=== PATIENT | male | born 1970 ===

== ENCOUNTER 2020-07-10 11:28 | Emergency (ER) | payer OTHER, SELFPAY ==
--- NOTE | ~2020-07-10 | CT_ITS ---
EXAMINATION: CT ABDOMEN AND PELVIS WITH CONTRAST CLINICAL INFORMATION: Nausea and left lower quadrant abdominal pain. COMPARISON: None TECHNIQUE: Multidetector volumetric images were obtained from the superior aspect of the liver through the pubic symphysis following administration 85 mL of Omnipaque 350 intravenous contrast. Sagittal and coronal reformatted images were obtained on the technologist's workstation. Oral contrast: No This CT examination was performed using dose optimization techniques as appropriate, variously including the following: *Automated exposure control *Adjustment of mA and/or kV according to patient size (this includes techniques or standardized protocols for targeted exams where dose is matched to indication/reason for exam; i.e. extremities or head) *Use of iterative reconstruction technique DLP: 652 mGy-cm FINDINGS: LUNG BASES: There is mild atelectatic changes right lower lobe. Heart size is normal. LIVER, GALLBLADDER, AND BILIARY TREE: The liver is normal in size, shape, and attenuation. There is a hypodensity seen on either side of the ligament teres likely focal fatty deposition. No focal hepatic lesion or biliary ductal dilatation is present. The gallbladder is unremarkable with no evidence of radiopaque gallstones, gallbladder wall thickening, or obvious pericholecystic inflammatory changes. PANCREAS: Unremarkable. SPLEEN: Unremarkable. ADRENAL GLANDS: Unremarkable. KIDNEYS AND URETERS: The kidneys are normal in size, shape, and attenuation. No hydronephrosis, hydroureter, or calculi seen. No perinephric stranding. BLADDER: Unremarkable. GASTROINTESTINAL TRACT: There is diffuse sigmoid and and rest the colon diverticulosis with mild mural thickening distal descending colon with pericolic fat stranding consistent with acute diverticulitis. There is a contained diverticuli. No abscess or free air seen. No proximal bowel obstruction. Scattered stool is seen in the rest of the colon. The small bowel loops are normal caliber. Appendix is normal caliber. ABDOMINAL WALL: No significant hernia is appreciated. LYMPH NODES: Normal. VASCULAR: Unremarkable. PELVIC VISCERA: The prostate gland is normal size with central gland calcification. OSSEOUS STRUCTURES: No lytic or sclerotic process seen. CT/CT abdomen pelvis w con IMPRESSION: Diffuse colonic diverticulosis with sigmoid colon diverticulitis. There is no abscess, obstruction or free air.
[2020-07-10 11:37] VITALS: BP 136/81; PULSE 88; RESP 18; TEMP 37.1; O2SAT 97; BMI 27.7
[2020-07-10 13:59] VITALS: RESP 16
[2020-07-10 13:59] LABS: MANUAL DIFF FLAG NO
[2020-07-10] MEDS: Morphine Sulfate 4 MG/ML CARTRIDGE IVPUSH (13:59)
[2020-07-10] MEDS: ondansetron HCL 4 MG/2 ML VIAL IVPUSH (13:59)
[2020-07-10] MEDS: Ketorolac Tromethamine 30 MG/ML VIAL IVPUSH (13:59)
[2020-07-10 14:00] VITALS: BP 131/81; PULSE 64; RESP 18; TEMP 37.1; O2SAT 99
[2020-07-10] MEDS: 0.9 % Sodium Chloride 1,000 ML 999 ML IVCONT (14:00)
[2020-07-10 14:04] LABS: Basophils Percent Auto 0.3 % (0-2); Eosinophils Absolute Auto 0.2 X10*3/uL (0.0-0.4); Eosinophils Percent Auto 1.8 % (0-4); Hematocrit 42.9 % (42-52); Hemoglobin 14.5 g/dl (14.0-18.0); Imm Gran Abs Auto 0.04 X10*3/uL (0.00-0.03); Imm Gran Pct Auto 0.4 % (0.0-0.4); Lymphocytes Absolute Auto 2.4 X10*3/uL (1.2-4.9); Lymphocytes Percent Auto 24.5 % (20-40); Mean Corpuscular HGB Conc 33.8 g/dl (31.0-36.0); Mean Corpuscular Hemoglobin 30.5 pg (27.0-33.0); Mean Corpuscular Volume 90.1 fL (80-98); Mean Platelet Volume 10.7 fL (9.4-12.4); Monocytes Percent Auto 10.6 % (2-11); Neutrophils Absolute Auto 6.1 X10*3/uL (2.0-8.3); Neutrophils Percent Auto 62.4 % (45-73); Platelet Count 214 X10*3/uL (160-400); Red Blood Count 4.76 X10*6/uL (4.60-5.80); White Blood Count 9.7 X10*3/uL (4.8-10.8)
[2020-07-10 14:10] LABS: INTERNATIONAL NORM RATIO 1.2 (0.9-1.1); Prothrombin Time 14.4 SEC (10.8-13.0)
[2020-07-10 14:23] LABS: Alanine Aminotransferase 19 U/L (0-40); Albumin Level 4.1 g/dL (3.5-5.0); Alkaline Phosphatase 46 U/L (39-117); Anion Gap 10 (12-20); Aspartate Amino Transferase 13 U/L (5-37); Bilirubin Total 0.6 mg/dL (0.0-1.0); Blood Urea Nitrogen 11 mg/dL (9-16); Calcium 8.9 mg/dL (8.4-10.2); Carbon Dioxide 28 mmol/L (22-29); Chloride 108 mmol/L (96-108); Creatinine Clr Calc Pharmacy 120.7; Estimated Glomerular Filt Rate > 60; Glucose Random 89 mg/dL (60-115); Lipase 6 U/L (8-78); Magnesium 2.1 mg/dL (1.6-2.6); Potassium 4.2 mmol/L (3.3-5.1); Sodium 142 mmol/L (135-145); Total Protein 6.3 g/dL (6.5-8.0)
--- NOTE | 2020-07-10 14:41 | ED.ABDPAIN ---
HPI - Abdominal Pain General Chief Complaint: Abdominal Pain Stated Complaint: side pain Time Seen by Provider: 07/10/20 13:30 Source: patient Mode of arrival: ambulatory Limitations: no limitations History of Present Illness HPI narrative: 49-year-old male with no significant past medical history presenting to the ED with complaints of left lower quadrant abdominal pain with associated nausea for the past week worse today. Reports he has had this in the past and they told him he had a infection in his intestines although he is unaware of the name of the infection. Denies any fevers, chills, dizziness, headaches, sore throat, cough, chest pain, shortness of breath, dyspnea exertion, orthopnea, palpitations, radiation of the abdominal pain, back pain, dysuria, hematuria, black or bloody stools, diarrhea constipation or any other symptoms complaints or concerns at this time. Denies recent travel or sick contacts or possible bad food exposure. MD elicited complaint: abdominal pain Pertinent past history: other (See above) Onset (ago): week(s) (1 week worse today) Pain Consistency: constant Location: LLQ Severity: severe Pain scale (0-10): 10 Quality: aching Radiation: none Migration to: no migration Exacerbating factors: nothing Relieving factors: nothing Associated symptoms: nausea Related Data Previous Rx's Medication Instructions Recorded acetaminophen [Tylenol Extra 1,000 mg PO QID PRN #14 tab 07/10/20 Strength] amoxicillin-pot clavulanate 1 tab PO BID 10 Days #20 tab 07/10/20 [Augmentin] ibuprofen 800 mg PO Q8H PRN #14 tab 07/10/20 ondansetron HCl [Zofran] 4 mg PO Q8H PRN #14 tab 07/10/20 oxycodone 5 mg PO BID PRN #10 tab 07/10/20 Allergies Allergy/AdvReac Type Severity Reaction Status Date / Time No Known Allergies Allergy Unverified 11/08/19 18:12 Review of Systems Review of Systems Constitutional : No Weight loss, No Fever, No Chills, No Night Sweats, No Fatigue, NoMalaise ENT/Mouth: No ear pain, No sore throat, No Difficulty swallowing Cardiovascular : No Chest Pain, No SOB, No Dyspnea on Exertion, No Orthopnea, NoEdema, No Palpitations Respiratory : No Cough, No Sputum, No Wheezing, No Dyspnea Gastrointestinal : Positive nausea/left lower quadrant abdominal pain, No Vomiting, No Diarrhea, No blood streaked emesis, No coffee-ground emesis, No gross hematemesis, No blood streak stool, No gross hematochezia, No Melena Genitourinary : No irregular bleeding, No Dysuria, No Urinary Frequency, No Hematuria,No Urinary Incontinence, No Urgency, No Flank Pain Musculoskeletal : No joint pain, No Myalgias, No Joint Swelling Skin : No Skin Lesions, No rash Neuro : No Weakness, No Numbness, No Paresthesias, No Loss of Consciousness, NoDizziness, No Headache Psych : No Social Issues, Heme/Lymph: No Bruising, No Bleeding,No Lymphadenopathy Endocrine : No Polyuria, No Polydipsia, No Temperature Intolerance Yes all other systems are reviewed and are negative Physical Exam Vital Signs: Vital Signs: Last Vital Signs Temp 98.8 F 07/10/20 14:00 Pulse 64 07/10/20 14:00 Resp 18 07/10/20 14:00 BP 131/81 07/10/20 14:00 Pulse Ox 99 07/10/20 14:00 Body Mass Index 27.7 vital signs have been reviewed as normal and appeared to be correct. Blood pressure normal. Heart rate normal. Respiration rate normal. Temperature normal. Oxygen saturation normal. Appearance: Alert. Oriented X3. No acute distress. Head: Normal external exam. Normocephalic. Eyes: PERRLA. EOMI. Conjunctiva and sclera normal. Eyelids normal. ENT: Pharynx normal. Uvula midline. Moist mucous membranes. No trismus noted. No drooling noted. No muffled voice noted. Neck: Normal inspection. Neck supple. FROM. No adenopathy. No meningeal signs. CVS: Normal heart rate and rhythm. Heart sound normal. No murmurs noted. Pulses normal throughout. Respiratory: No respiratory distress. Painless inspiration. Breath sounds normal. No wheezes/rales/rhonchi noted. Chest nontender. No accessory muscle usage noted or decreased air movement noted. Abdomen: Soft and moderate tenderness to palpation to left lower quadrant with guarding. Nondistended. No rigidity. Bowel sounds normal in all 4 quadrants. No distention noted. No organomegaly noted. No visible injury noted. No rebound tenderness. Negative Rovsing sign. Negative obturator's sign. Negative psoas sign. Negative Aguayo sign. Back: No CVA tenderness. Full range of motion noted. Skin: Skin warm and dry. Normal skin color. Normal skin turgor. No rashes/lesions/lacerations noted. Extremities: Extremities exhibit normal range of motion. Extremities nontender. Neuro: Oriented X 3. No motor deficit. No sensory deficit. Reflexes normal. Normal steady gait. Course Course Course Narrative: 14:50pm - labs returned all within normal limits. Still awaiting CT scan of abdomen and pelvis with IV contrast and UA. Will continue to monitor and re-evaluate. Reevaluation(s) Reevaluation #1: - CT scan of abdomen and pelvis revealed diffuse colonic diverticulosis with sigmoid colon diverticulitis there is no abscess obstruction or free air. - patient is tolerating p.o. fluids/solids. Therefore will DC home with Augmentin along with symptomatic treatment instructions return if any new or worsening symptoms to follow up with primary care provider. Patient understands agrees with this plan. Time: 15:42 MDM - Abdominal Pain MDM Narrative Medical decision making narrative: 13:40pm -49-year-old male with no significant past medical history presenting to the ED with complaints of left lower quadrant abdominal pain with associated nausea for the past week worse today. Plan: Labs, UA, CT scan of abdomen pelvis with IV contrast. Provide a L of IV fluids, 30 mg of Toradol, 4 mg of Zofran and 4 mg of morphine and re-evaluate. Medical Records Attestation: I reviewed the patient's medical records. Lab Data Attestation: I reviewed the patient's lab results. Result diagrams: 07/10/20 13:56 07/10/20 13:56 Labs: Lab Results 07/10/20 07/10/20 07/10/20 Range/Units 13:56 13:56 13:56 WBC 9.7 (4.8-10.8) X10*3/uL RBC 4.76 (4.60-5.80) X10*6/uL Hgb 14.5 (14.0-18.0) g/dl Hct 42.9 (42-52) % MCV 90.1 (80-98) fL MCH 30.5 (27.0-33.0) pg MCHC 33.8 (31.0-36.0) g/dl RDW 13.0 (11.0-16.0) % Plt Count 214 (160-400) X10*3/uL MPV 10.7 (9.4-12.4) fL Immature Gran % (Auto) 0.4 (0.0-0.4) % Neut % (Auto) 62.4 (45-73) % Lymph % (Auto) 24.5 (20-40) % Glenn % (Auto) 10.6 (2-11) % Eos % (Auto) 1.8 (0-4) % Baso % (Auto) 0.3 (0-2) % Lymph # (Auto) 2.4 (1.2-4.9) X10*3/uL Glenn # (Auto) 1.0 (0.1-1.2) X10*3/uL Eos # (Auto) 0.2 (0.0-0.4) X10*3/uL Baso # (Auto) 0.0 (0.0-0.2) X10*3/uL Abs Immat Gran (auto) 0.04 H (0.00-0.03) X10*3/uL Absolute Neuts (auto) 6.1 (2.0-8.3) X10*3/uL Absolute Nucleated RBC 0.000 (0.0-0.012) X10*3/uL Nucleated RBC % (auto) 0.0 (0.0-0.2) /100WBC PT 14.4 H (10.8-13.0) SEC INR 1.2 H (0.9-1.1) Sodium 142 (135-145) mmol/L Potassium 4.2 (3.3-5.1) mmol/L Chloride 108 (96-108) mmol/L Carbon Dioxide 28 (22-29) mmol/L Anion Gap 10 L (12-20) BUN 11 (9-16) mg/dL Creatinine 0.87 (0.5-1.4) mg/dL Estim Creat Clear Calc 120.7 Estimated GFR > 60 Random Glucose 89 (60-115) mg/dL Calcium 8.9 (8.4-10.2) mg/dL Magnesium 2.1 (1.6-2.6) mg/dL Total Bilirubin 0.6 (0.0-1.0) mg/dL AST 13 (5-37) U/L ALT 19 (0-40) U/L Alkaline Phosphatase 46 (39-117) U/L Total Protein 6.3 L (6.5-8.0) g/dL Albumin 4.1 (3.5-5.0) g/dL Lipase 6 L (8-78) U/L Imaging Data CT scan abdomen pelvis with IV contrast: Attestation: I personally reviewed and interpreted this imaging study as follows: Radiologist's impression: FINDINGS: LUNG BASES: There is mild atelectatic changes right lower lobe. Heart size is normal. LIVER, GALLBLADDER, AND BILIARY TREE: The liver is normal in size, shape, and attenuation. There is a hypodensity seen on either side of the ligament teres likely focal fatty deposition. No focal hepatic lesion or biliary ductal dilatation is present. The gallbladder is unremarkable with no evidence of radiopaque gallstones, gallbladder wall thickening, or obvious pericholecystic inflammatory changes. PANCREAS: Unremarkable. SPLEEN: Unremarkable. ADRENAL GLANDS: Unremarkable. KIDNEYS AND URETERS: The kidneys are normal in size, shape, and attenuation. No hydronephrosis, hydroureter, or calculi seen. No perinephric stranding. BLADDER: Unremarkable. GASTROINTESTINAL TRACT: There is diffuse sigmoid and and rest the colon diverticulosis with mild mural thickening distal descending colon with pericolic fat stranding consistent with acute diverticulitis. There is a contained diverticuli. No abscess or free air seen. No proximal bowel obstruction. Scattered stool is seen in the rest of the colon. The small bowel loops are normal caliber. Appendix is normal caliber. ABDOMINAL WALL: No significant hernia is appreciated. LYMPH NODES: Normal. VASCULAR: Unremarkable. PELVIC VISCERA: The prostate gland is normal size with central gland calcification. OSSEOUS STRUCTURES: No lytic or sclerotic process seen. CT/CT abdomen pelvis w con IMPRESSION: Diffuse colonic diverticulosis with sigmoid colon diverticulitis. There is no abscess, obstruction or free air. Critical Care Time Critical Care Time Critical Care Time: Yes Total Critical Care Time: 60 Attestation: I personally attest to this time spent taking care of the patient Discharge Plan Discharge Clinical Impression: Diverticulitis Patient Disposition: Home, Self-Care Instructions: Diverticulitis (ED), Diverticulitis Diet (ED) Prescriptions: New ibuprofen 800 mg tablet 800 mg PO Q8H PRN (Reason: pain) Qty: 14 RF: 0 ondansetron HCl [Zofran] 4 mg tablet 4 mg PO Q8H PRN (Reason: nausea and vomiting) Qty: 14 RF: 0 acetaminophen [Tylenol Extra Strength] 500 mg tablet 1,000 mg PO QID PRN (Reason: fever or pain) Qty: 14 RF: 0 amoxicillin-pot clavulanate [Augmentin] 875-125 mg tablet 1 tab PO BID 10 Days Qty: 20 RF: 0 oxycodone 5 mg tablet 5 mg PO BID PRN (Reason: pain) Qty: 10 RF: 0 Referrals: Prabha Limon MD [Physician] - 2 days Physician,Unknown [Primary Care Provider] - 2 days Stand Alone Forms: Work/School Release Print Language: Irish [facility] Past Medical History Attestation statement: The following information was validated with the patient. Social History Social History Advance Directives: Yes Advance Directives Information Provided: Yes Advance Directives on File: No
[2020-07-10] MEDS: iohexoL 350 MG/ML 100 ML INFUS..BTL IV (14:47)
[2020-07-10] MEDS: Amoxicillin/Potassium Clav 875 MG TABLET PO (16:15)
[2020-07-10 17:25] LABS: Influenza A PCR NEGATIVE (Negative); Influenza B PCR NEGATIVE (Negative); Resp Syncy Virus RNA Qual PCR NEGATIVE (Negative); SARS COV2 PCR INHOUSE NEGATIVE (Negative)
== END 2020-07-10 16:22 | disposition home or self-care (01) ==
PROVIDERS: Physician Assistant Medical; Emergency Provider Emergency Medicine Emergency Medical Services
DX: K57.32 Diverticulitis of large intestine without perforation or abscess without bleeding (principal); R10.32 Left lower quadrant pain; Z20.822 Contact with and (suspected) exposure to COVID-19
CPT/HCPCS: 0241U; 36415; 74177; 80053; 83690; 83735; 85025; 85610; 96361; 96374; 96375; 99284; 99291; J1885; J2270; J2405; Q9967

== ENCOUNTER → 2020-09-16 10:52 | Outpatient (BNVA) | payer OTHER, SELFPAY | PROVIDERS: Visit Provider Internal Medicine Cardiovascular Disease | DX: I51.9 Heart disease, unspecified (principal) | CPT/HCPCS: 93005 ==

== ENCOUNTER → 2020-10-24 10:26 | Outpatient (REF) | payer OTHER, SELFPAY ==
--- NOTE | 2020-10-24 10:29 | CA_ITS ---
Transthoracic Echocardiogram Patient (Last, First, Middle): Maxi Gutierrez, Gender: Male Date of : 1970 Age: 50 Procedure Date: 10/24/2020 Procedure Type: Transthoracic Echocardiogram Location: OP Height: 185.42 cm Weight: 85.73 kg BSA: 2.10 m2 Heart Rate: bpm BP: 106 / 64 mmHg Account Manager B2B: CAROL Franks MD: Teja Myles MD Instrument Installer: Teja Myles MD Symptoms: I51.9 - Heart disease, unspecified Study Quality: Good ECG Rhythm: Sinus Conclusions: - 1. Mildly reduced LV systolic function with LVEF of 45-50% 2. Normal cardiac valvular Doppler 3. Normal RV systolic pressure 4. No pericardial effusion Findings Left Ventricle Normal left ventricular cavity size. There is normal left ventricular wall thickness. The left ventricular systolic function is mildly decreased. The visually estimated ejection fraction is between 45-50%. Spectral Doppler is indicative of a normal filling pattern. Right Ventricle Normal right ventricular cavity size and systolic function. Atria Both atria are normal in size. There is no evidence of interatrial shunt. Aortic Valve Normal aortic valve structure and function. There is no aortic valve stenosis. There is no aortic valve regurgitation. Mitral Valve Normal mitral valve structure and function. There is trace mitral valve regurgitation. There is no mitral valve stenosis. Pulmonic Valve The pulmonic valve was not well visualized. Tricuspid Valve Likely normal tricuspid valve structure and function. There is trace tricuspid valve regurgitation. The right ventricular systolic pressure is normal. The right ventricular systolic pressure is 26 mmHg. Normal right atrial pressure. There is no evidence of pulmonary hypertension. Great Vessels All visible segments of the aorta are normal in size. The pulmonary artery was not well visualized. Venous The inferior vena cava is normal in size and collapses greater than 50% with inspiration. Pericardium/Pleural There is no evidence of pericardial effusion. Prior Study Comparison No significant change compared to prior study dated: 11/02/2018. Measurements 2D Linear Measurements RVIDd: 3.46 RVIDd Index: 1.65 IVSd: 0.94 0.6-0.9/0.6-1.0 cm LVIDd: 5.31 3.9-5.3/4.2-5.9 cm LVIDd Index: 2.53 2.4-3.2/2.2-3.1 cm/m2 LVIDs: 4.13 2.0-3.6 cm LVPWd: 1.32 0.7-1.1 cm Ao Root: 3.10 2.1-3.5 cm LA Diam: 3.80 2.7-3.8/3.0-4.0 cm LAIDs Index: 1.81 1.5-2.3 cm/m2 LV Mass: 296.16 67-162/88-224 g LV Mass Index: 141.03 43-95/49-115 g/m2 LVOT Diam: 2.40 3.0+(-)1.3 cm 2D Systolic Function EF 4C: 38.00 >55% EF 2C: 48.60 >55% EF BiP: 45.60 >55% Mitral Valve MV Pk E: 0.65 MV PK A: 0.52 MV Decel Time: 211.00 E/A: 1.30 E'Lateral: 11.60 E'Medial: 7.94 E/E' Med: 8.20 E/E' Lat: 5.60 Aortic Valve AoV Pk Jeison: 1.91 AoV Mn Jeison: 1.11 AoV VTI: 0.28 AoV Pk Grad: 15.00 Aov Mn Grad: 6.00 MOLLY Cont.VTI: 2.72 LVOT LVOT Pk Jeison: 0.84 LVOT Mn Jeison: 0.59 LVOT VTI: 0.17 LVOT Pk Grad: 3.00 LVOT Mn Grad: 2.00 LVOT Diam: 2.40 LVOT Area: 4.52 Diastolic Function MV Pk E: 0.65 MV Pk A: 0.52 E/A: 1.30 E'Medial: 7.94 E/E' Med: 8.20 E' Laterial: 11.60 E/E' Lat: 5.60 Right Ventricle TAPSE (mm): 17.00 TVS' Jeison: 9.70 Tricuspid Valve TR Pk Jeison: 2.42 TR Pk Grad: 23.00 RA Press: 3.00 RVSP: 26.00 Great Vessels Aorta Ao Root-2D: 3.10 2.0-3.7 cm Ao Asc: 2.90 2.1-3.4 cm Ao Arch: 2.60 Updated in Other Vendor System with Status of Final Teja Myles MD electronically signed on 10/26/2020 11:50:18 AM with status of Final
== END ==
LOC: HO.CARD 10:26
PROVIDERS: PCP Internal Medicine; Visit Provider Internal Medicine Cardiovascular Disease
DX: I51.9 Heart disease, unspecified (principal)
CPT/HCPCS: 93306

== ENCOUNTER 2022-04-04 09:39 | Emergency (ER) | payer OTHER, SELFPAY ==
--- NOTE | ~2022-04-04 | CT_ITS ---
EXAMINATION: CT ABDOMEN AND PELVIS WITHOUT CONTRAST CLINICAL INFORMATION: Flank pain and hematuria COMPARISON: CT abdomen pelvis 07/10/2020 TECHNIQUE: Multidetector volumetric imaging was performed from the superior aspect of the liver through the pubic symphysis. Sagittal and coronal reformatted images were obtained on the technologist's workstation. This CT examination was performed using dose optimization techniques as appropriate, variously including the following: *Automated exposure control *Adjustment of mA and/or kV according to patient size (this includes techniques or standardized protocols for targeted exams where dose is matched to indication/reason for exam; i.e. extremities or head) *Use of iterative reconstruction technique DLP: 689 mGy-cm FINDINGS: LUNG BASES: Scattered calcified pulmonary granulomas. ABDOMINAL AND PELVIC WALL: Tiny fat-containing umbilical hernia. Tiny fat-containing right inguinal hernia. LIVER AND BILIARY TREE: Unremarkable. GALLBLADDER: Unremarkable. PANCREAS: Unremarkable. SPLEEN: Unremarkable. ADRENAL GLANDS: Unremarkable. KIDNEYS AND URETERS: Bosniak 1 benign-appearing left renal cyst, no follow-up imaging recommended. No hydronephrosis or nephrolithiasis. GASTROINTESTINAL TRACT: Colonic diverticulosis without evidence of diverticulitis. Appendicoliths within an otherwise normal appendix. VASCULAR: Unremarkable. LYMPH NODES/PERITONEUM: No lymphadenopathy. FREE FLUID: None. BLADDER: Unremarkable. PELVIC VISCERA: Unremarkable. OSSEOUS STRUCTURES: Unremarkable. CT/CT abdomen pelvis wo IV con IMPRESSION: No findings to explain symptoms of flank pain. No hydronephrosis or nephrolithiasis.
[2022-04-04 09:43] VITALS: BP 180/103; PULSE 86; RESP 18; TEMP 36.1; O2SAT 99; BMI 27.0
[2022-04-04 09:54] LABS: MANUAL DIFF FLAG NO
[2022-04-04 09:56] LABS: Basophils Percent Auto 0.3 % (0-2); Eosinophils Absolute Auto 0.2 X10*3/uL (0.0-0.4); Eosinophils Percent Auto 2.2 % (0-4); Hematocrit 44.7 % (42.0-52.0); Hemoglobin 15.1 g/dl (14.0-18.0); Imm Gran Abs Auto 0.06 X10*3/uL (0.00-0.03); Imm Gran Pct Auto 0.9 % (0.0-0.4); Lymphocytes Absolute Auto 2.3 X10*3/uL (1.2-4.9); Lymphocytes Percent Auto 33.4 % (20-40); Mean Corpuscular HGB Conc 33.8 g/dl (31.0-36.0); Mean Corpuscular Hemoglobin 29.8 pg (27.0-33.0); Mean Corpuscular Volume 88.3 fL (80.0-98.0); Mean Platelet Volume 10.3 fL (9.4-12.4); Monocytes Absolute Auto 0.6 X10*3/uL (0.1-1.2); Monocytes Percent Auto 8.3 % (2-11); Neutrophils Absolute Auto 3.8 x10*3/uL (2.0-8.3); Neutrophils Percent Auto 54.9 % (45-73); Platelet Count 242 X10*3/uL (160-400); Red Blood Count 5.06 X10*6/uL (4.60-5.80); Red Cell Distribution Width 12.9 % (11.0-16.0); White Blood Count 6.9 X10*3/uL (4.8-10.8)
[2022-04-04 10:09] LABS: Anion Gap 12 (12-20); Blood Urea Nitrogen 11 mg/dL (9-16); Carbon Dioxide 25 mmol/L (22-29); Chloride 105 mmol/L (96-108); Creatinine Clr Calc Pharmacy 117.5; Estimated Glomerular Filt Rate > 60; Glucose Random 150 mg/dL (60-115); Potassium 4.2 mmol/L (3.3-5.1); Sodium 138 mmol/L (135-145)
--- NOTE | 2022-04-04 11:32 | ED.ABDPAIN ---
HPI - Abdominal Pain General Chief Complaint: Back Pain/Injury Stated Complaint: Blood in urine Time Seen by Provider: 04/04/22 11:30 Source: patient Mode of arrival: ambulatory Limitations: no limitations History of Present Illness HPI narrative: 51yoM with a PMHx of diverticulitis was presenting to the ED with complaints of 2 days of right flank/right abdominal pain with associated hematuria. Reports he had some hematuria yesterday. Normal urine output today. Although he has had some associated nausea. Reports he has never had this pain in the past. Does not feel like his regular diverticulitis pain. Denies any fevers, vomiting, chest pain or shortness of breath, diarrhea constipation or any other symptoms complaints or concerns at this time. MD elicited complaint: abdominal pain and flank pain Pertinent past history: diverticulitis Onset (ago): day(s) (2) Pain Consistency: constant Location: RLQ and R flank Severity: moderate Quality: aching Radiation: suprapubic Exacerbating factors: nothing Relieving factors: nothing Associated symptoms: nausea Related Data Previous Rx's Medication Instructions Recorded acetaminophen 500 mg tablet 1,000 mg PO QID PRN fever or pain 07/10/20 (Tylenol Extra Strength) #14 tabs ibuprofen 800 mg tablet 800 mg PO Q8H PRN pain #14 tabs 07/10/20 ondansetron HCl 4 mg tablet 4 mg PO Q8H PRN nausea and 07/10/20 (Zofran) vomiting #14 tabs cyclobenzaprine 10 mg tablet 10 mg PO Q8H Muscle strain #14 tabs 04/04/22 naproxen 500 mg tablet 500 mg PO BID PRN pain #14 tabs 04/04/22 Allergies Allergy/AdvReac Type Severity Reaction Status Date / Time No Known Allergies Allergy Verified 08/12/20 08:56 Review of Systems Review of Systems Constitutional : No Fever, No Chills, No Night Sweats, No Fatigue, No Malaise Cardiovascular : No Chest Pain, No SOB Respiratory : No Cough, No Sputum, No Wheezing, No Dyspnea Gastrointestinal : + Nausea, No Vomiting, No Diarrhea, + abdominal Pain, No Hematochezia, No Melena Genitourinary : No irregular bleeding, No Dysuria, No Urinary Frequency, + Hematuria,No Urinary Incontinence, No Urgency, No Flank Pain Musculoskeletal : No joint pain, No Myalgias, No Joint Swelling Skin : No Skin Lesions, No rash Neuro : No Weakness, No Numbness, No Paresthesias, No Loss of Consciousness, No Dizziness, No Headache Heme/Lymph: No Lymphadenopathy Endocrine : No Temperature Intolerance Yes all other systems are reviewed and are negative [facility] Past Medical History Attestation statement: The following information was validated with the patient. Source: old records reviewed and nursing notes reviewed Family History Family History Mother Vaginal cancer Father Heart attack, Onset Age: 22 Social History Social History Housing: Apartment Alcohol intake: current Alcohol intake frequency: holidays/special occasions only Patient Tobacco Use Status: Current everyday Tobacco user Cigarettes Per Day: 8 e-Cigarette/Vaping Use: Never Used Second Hand Smoke Exposure: Yes Advance Directives: No Advance Directives Information Provided: Yes service: No Current occupational status: employed Current occupation: make plastic bottles Physical Exam ED Vital Signs: Vital Signs - 24 hr 04/04/22 09:43 04/04/22 12:51 Temperature 97 F Pulse Rate 86 62 Respiratory Rate 18 16 Blood Pressure 180/103 H 152/92 H Pulse Oximetry 99 98 Oxygen Delivery Method Room Air Room Air BMI result Body Mass Index 27.0 Vital signs have been reviewed blood pressure elevated at 180/103. Pulse 86. Respiration 18. Temperature 97 degrees. Oxygen 99% on room air Appearance: Alert. Oriented X3. No acute distress. Head: Normal external exam. Normocephalic. Eyes: PERRLA. EOMI. Conjunctiva and sclera normal. Eyelids normal. ENT: Pharynx normal. Uvula midline. Moist mucous membranes. No trismus noted. No drooling noted. No muffled voice noted. Neck: Normal inspection. Neck supple. FROM. No adenopathy. No meningeal signs. CVS: Normal heart rate and rhythm. Heart sound normal. No murmurs noted. Pulses normal throughout. Respiratory: No respiratory distress. Painless inspiration. Breath sounds normal. No wheezes/rales/rhonchi noted. Chest nontender. No accessory muscle usage noted or decreased air movement noted. Abdomen: Soft and mild tenderness palpation to the right flank. Nondistended. No guarding. No rigidity. Bowel sounds normal in all 4 quadrants. No distention noted. No organomegaly noted. No visible injury noted. No rebound tenderness. Negative Rovsing sign. Negative obturator's sign. Negative psoas sign. Negative Aguayo sign. Back: No CVA tenderness. Full range of motion noted. Skin: Skin warm and dry. Normal skin color. Normal skin turgor. No rashes/lesions/lacerations noted. Extremities: Extremities exhibit normal range of motion. Extremities nontender. Neuro: Oriented X 3. No motor deficit. No sensory deficit. Reflexes normal. Normal steady gait. CN's II-XII intact bilaterally? Course Course Course Narrative: 11:30am - 51yoM with a PMHx of diverticulitis was presenting to the ED with complaints of 2 days of right flank/right abdominal pain with associated hematuria. Reports he had some hematuria yesterday. Normal urine output today. Although he has had some associated nausea. Reports he has never had this pain in the past. Does not feel like his regular diverticulitis pain. This is a 51yoM with right flank pain most concerning for Kidney stones. Differential diagnoses: uti vs appendicitis. Abdominal exam without peritoneal signs. No evidence of acute abdomen at this time. Well appearing. Low suspicion for acute hepatobiliary disease (includng acute cholecystitis), acute infectious processes (pneumonia, hepatitis, pyelonephritis), vascular catastrophe, bowel obstruction or viscus perforation. Presentation not consistent with other acute, emergent causes of abdominal pain at this time. Plan: Patient already had labs while he was in the waiting room patient's random glucose is 150. Otherwise all other labs are within normal limits. I did add LFTs lipase and magnesium that is pending at this time. UA was not given although was ordered. And a CT scan abdomen pelvis without IV contrast ordered at this time. Patient sent back to the waiting room to be evaluated in ED I will keep this patient. Reevaluation(s) Reevaluation #1: CT scan revealed right inguinal hernia otherwise no other acute processes. Not consistent with kidney stones or diverticulitis. Therefore at this time will DC home with symptomatic treatment and referral to a general surgeon for his hernia. It is not incarcerated. No additional labs or imaging indicated at this time. His urine is currently pending. I will call him if he has UTI although he does not have any dysuria. Patient understands return if any new or worsening symptoms. Time: 12:43 Medical Decision Making Lab Data MDM Lab Attestation statement: I reviewed the patient's lab results. 04/04/22 09:51 04/04/22 09:51 Labs: Lab Results 04/04/22 04/04/22 04/04/22 Range/Units 09:51 09:51 12:26 WBC 6.9 (4.8-10.8) X10*3/uL RBC 5.06 (4.60-5.80) X10*6/uL Hgb 15.1 (14.0-18.0) g/dl Hct 44.7 (42.0-52.0) % MCV 88.3 (80.0-98.0) fL MCH 29.8 (27.0-33.0) pg MCHC 33.8 (31.0-36.0) g/dl RDW 12.9 (11.0-16.0) % Plt Count 242 (160-400) X10*3/uL MPV 10.3 (9.4-12.4) fL Immature Gran % (Auto) 0.9 H (0.0-0.4) % Neut % (Auto) 54.9 (45-73) % Lymph % (Auto) 33.4 (20-40) % [place] % (Auto) 8.3 (2-11) % Eos % (Auto) 2.2 (0-4) % Baso % (Auto) 0.3 (0-2) % Lymph # (Auto) 2.3 (1.2-4.9) X10*3/uL [place] # (Auto) 0.6 (0.1-1.2) X10*3/uL Eos # (Auto) 0.2 (0.0-0.4) X10*3/uL Baso # (Auto) 0.0 (0.0-0.2) X10*3/uL Abs Immat Gran (auto) 0.06 H (0.00-0.03) X10*3/uL Absolute Neuts (auto) 3.8 (2.0-8.3) x10*3/uL Absolute Nucleated RBC 0.000 (0.0-0.012) X10*3/uL Nucleated RBC % (auto) 0.0 (0.0-0.2) /100WBC Sodium 138 (135-145) mmol/L Potassium 4.2 (3.3-5.1) mmol/L Chloride 105 (96-108) mmol/L Carbon Dioxide 25 (22-29) mmol/L Anion Gap 12 (12-20) BUN 11 (9-16) mg/dL Creatinine 0.85 (0.5-1.4) mg/dL Estim Creat Clear Calc 117.5 Estimated GFR > 60 Random Glucose 150 H (60-115) mg/dL Calcium 9.0 (8.4-10.2) mg/dL Magnesium 1.6 (1.6-2.6) mg/dL Total Bilirubin 0.4 (0.0-1.0) mg/dL Direct Bilirubin < 0.2 (0.0-0.5) mg/dL AST 16 (5-37) U/L ALT 17 (0-40) U/L Alkaline Phosphatase 42 (39-117) U/L Total Protein 6.4 L (6.5-8.0) g/dL Albumin 4.1 (3.5-5.0) g/dL Lipase 16 (8-78) U/L Urine Color Yellow Urine Appearance Clear Urine pH 7.0 (5.0-9.0) Ur Specific Taylor 1.015 (1.005-1.025) Urine Protein Negative (Neg-Trace) mg/dL Urine Glucose (UA) Negative (Negative) mg/dL Urine Ketones Negative (Negative) mg/dL Urine Blood Negative (Negative) Urine Nitrite Negative (Negative) Ur Leukocyte Esterase Negative (Negative) Independent Interpretation I performed an independent interpretation of an: CT Scan (I reviewed the CT scan results and explained to the patient that he does have a right inguinal hernia he does not have any kidney stones or diverticulitis at this time) Radiology Impression Discussion of test interpretation with radiology: I have reviewed the radiologist's reading. Radiologist Impression: FINDINGS: LUNG BASES: Scattered calcified pulmonary granulomas.? ABDOMINAL AND PELVIC WALL:? Tiny fat-containing umbilical hernia. Tiny fat-containing right inguinal hernia.? LIVER AND BILIARY TREE: Unremarkable.? GALLBLADDER: Unremarkable.? PANCREAS: Unremarkable.? SPLEEN: Unremarkable.? ADRENAL GLANDS: Unremarkable.? KIDNEYS AND URETERS: Bosniak 1 benign-appearing left renal cyst, no follow-up imaging recommended. No hydronephrosis or nephrolithiasis. GASTROINTESTINAL TRACT: Colonic diverticulosis without evidence of diverticulitis.? Appendicoliths within an otherwise normal appendix. VASCULAR: Unremarkable. LYMPH NODES/PERITONEUM: No lymphadenopathy. FREE FLUID: None. BLADDER: Unremarkable.? PELVIC VISCERA: Unremarkable. OSSEOUS STRUCTURES: Unremarkable.? CT/CT abdomen pelvis wo IV con IMPRESSION: ? No findings to explain symptoms of flank pain. No hydronephrosis or nephrolithiasis. Prescription Management I considered prescription management with: Pain Medication (Will DC home with naproxen and Flexeril) Medications Administered Discontinued Medications Generic Name Dose Route Start Last Admin Trade Name Freq PRN Reason Stop Dose Admin Ketorolac Tromethamine 60 mg 04/04/22 11:52 04/04/22 12:27 Ketorolac Tromethamine 60 Mg/2 Ml Vial IM 04/04/22 11:53 60 mg ONCE ONE Administration Ondansetron HCl 4 mg 04/04/22 11:52 04/04/22 12:27 Ondansetron Odt 4 Mg Tab.Rapdis TRANSLINGU 04/04/22 11:53 4 mg ONCE ONE Administration Oxycodone HCl 5 mg 04/04/22 11:52 04/04/22 12:26 Oxycodone Hcl Immed Release 5 Mg Tablet PO 04/04/22 11:53 5 mg ONCE ONE Administration Discharge Plan Discharge Clinical Impression: Pain on movement of skeletal muscle, Inguinal hernia, right Patient Disposition: Home, Self-Care Instructions: Inguinal Hernia (ED), Musculoskeletal Pain (ED) Prescriptions: New naproxen 500 mg tablet 500 mg PO BID PRN (Reason: pain) Qty: 14 0RF cyclobenzaprine 10 mg tablet 10 mg PO Q8H Qty: 14 0RF No Action ibuprofen 800 mg tablet 800 mg PO Q8H PRN (Reason: pain) Qty: 14 0RF ondansetron HCl [Zofran] 4 mg tablet 4 mg PO Q8H PRN (Reason: nausea and vomiting) Qty: 14 0RF acetaminophen [Tylenol Extra Strength] 500 mg tablet 1,000 mg PO QID PRN (Reason: fever or pain) Qty: 14 0RF Referrals: [facility] [place] General Surgeons [Provider Group] (Call to make a follow-up appointment for your right inguinal hernia an your umbilical hernia) Po,Lorenver O, MD [Primary Care Provider] - 2 days
[2022-04-04 11:41] LABS: Alanine Aminotransferase 17 U/L (0-40); Albumin Level 4.1 g/dL (3.5-5.0); Alkaline Phosphatase 42 U/L (39-117); Aspartate Amino Transferase 16 U/L (5-37); Bilirubin Direct < 0.2 mg/dL (0.0-0.5); Bilirubin Total 0.4 mg/dL (0.0-1.0); Lipase 16 U/L (8-78); Magnesium 1.6 mg/dL (1.6-2.6); Total Protein 6.4 g/dL (6.5-8.0)
[2022-04-04] MEDS: oxyCODONE HCl Immed Release 5 MG TABLET PO (12:26)
[2022-04-04] MEDS: Ondansetron ODT 4 MG TAB.RAPDIS TRANSLINGU (12:27)
[2022-04-04] MEDS: Ketorolac Tromethamine 60 MG/2 ML VIAL IM (12:27)
[2022-04-04 12:49] LABS: Appearance Urine Clear; Color Urine Yellow; Glucose Urine UA Negative (Negative); Leukocyte Esterase Urine Negative (Negative); Nitrite Urine Negative (Negative); Specific Gravity - Urine 1.015 (1.005-1.025); Urine Blood Negative (Negative); Urine Ketones Negative (Negative); Urine Protein Negative (Neg-Trace)
[2022-04-04 12:51] VITALS: BP 152/92; PULSE 62; RESP 16; O2SAT 98
--- NOTE | 2022-04-04 13:23 | PC.NURSE ---
pt medicated for 6/10 right lower back pain, denies any pain after medication.
[2022-04-04 16:25] LABS: CT PCR NOT DETECTED (Not Detect.); NG PCR NOT DETECTED (Not Detect.)
== END 2022-04-04 13:24 | disposition home or self-care (01) ==
PROVIDERS: Physician Assistant Medical; Emergency Provider Emergency Medicine Emergency Medical Services; PCP Internal Medicine
DX: K40.90 Unilateral inguinal hernia, without obstruction or gangrene, not specified as recurrent (principal); R31.9 Hematuria, unspecified; M79.10 Myalgia, unspecified site; Z79.899 Other long term (current) drug therapy
CPT/HCPCS: 0353U; 36415; 74176; 80048; 80076; 81003; 83690; 83735; 85025; 96372; 99284; J1885

== ENCOUNTER 2022-04-22 14:02 | Outpatient (REF) | payer OTHER, SELFPAY ==
[2022-04-22 14:49] LABS: MANUAL DIFF FLAG NO
[2022-04-22 15:37] LABS: Basophils Percent Auto 0.4 % (0-2); Eosinophils Absolute Auto 0.2 X10*3/uL (0.0-0.4); Eosinophils Percent Auto 2.2 % (0-4); Hematocrit 43.5 % (42.0-52.0); Hemoglobin 15.1 g/dl (14.0-18.0); Imm Gran Abs Auto 0.02 X10*3/uL (0.00-0.03); Imm Gran Pct Auto 0.3 % (0.0-0.4); Lymphocytes Absolute Auto 2.7 X10*3/uL (1.2-4.9); Mean Corpuscular HGB Conc 34.7 g/dl (31.0-36.0); Mean Corpuscular Hemoglobin 30.1 pg (27.0-33.0); Mean Corpuscular Volume 86.7 fL (80.0-98.0); Mean Platelet Volume 11.1 fL (9.4-12.4); Monocytes Absolute Auto 0.7 X10*3/uL (0.1-1.2); Monocytes Percent Auto 8.8 % (2-11); Neutrophils Absolute Auto 4.1 x10*3/uL (2.0-8.3); Neutrophils Percent Auto 53.3 % (45-73); Platelet Count 261 X10*3/uL (160-400); Red Blood Count 5.02 X10*6/uL (4.60-5.80); Red Cell Distribution Width 12.7 % (11.0-16.0); White Blood Count 7.7 X10*3/uL (4.8-10.8)
[2022-04-22 15:39] LABS: Appearance Urine Clear; Color Urine Yellow; Glucose Urine UA Negative (Negative); Leukocyte Esterase Urine Negative (Negative); Nitrite Urine Negative (Negative); Urine Blood Negative (Negative); Urine Ketones Negative (Negative); Urine Protein Negative (Neg-Trace)
[2022-04-22 15:44] LABS: Estimated Average Glucose 111 mg/dL; Hemoglobin A1C 138.6717 umol/L; Hemoglobin A1c % 5.5 %
[2022-04-22 15:53] LABS: Amphetamine Screen Urine Not Detected (Not Detect); Barbiturates, Urine Not Detected (Not Detect); Benzodiazepines Screen Urine Not Detected (Not Detect); Cannabinoid Screen Urine POSITIVE (Not Detect); Cocaine Screen Urine Not Detected (Not Detect); Fentanyl, urine Not Detected (Not Detect); Opiate Screen Urine Not Detected (Not Detect); Phencyclidine Screen Urine Not Detected (Not Detect)
[2022-04-22 16:06] LABS: Alanine Aminotransferase 15 U/L (0-40); Albumin Level 4.4 g/dL (3.5-5.0); Alkaline Phosphatase 42 U/L (39-117); Anion Gap 11 (12-20); Aspartate Amino Transferase 18 U/L (5-37); Bilirubin Total 0.3 mg/dL (0.0-1.0); Blood Urea Nitrogen 13 mg/dL (9-16); Calcium 9.1 mg/dL (8.4-10.2); Carbon Dioxide 26 mmol/L (22-29); Chloride 108 mmol/L (96-108); Estimated Glomerular Filt Rate > 60; Glucose Random 97 mg/dL (60-115); Potassium 3.9 mmol/L (3.3-5.1); Sodium 141 mmol/L (135-145); Total Protein 6.9 g/dL (6.5-8.0)
[2022-04-27 19:59] LABS: Cotinine, U 1510 ng/mL; Nicotine, U 1075 ng/mL
== END 2022-04-22 14:03 | disposition home or self-care (01) ==
LOC: HO.LAB 14:02
PROVIDERS: PCP Internal Medicine; Referring Provider Internal Medicine; Visit Provider Surgery
DX: I51.9 Heart disease, unspecified (principal); K40.90 Unilateral inguinal hernia, without obstruction or gangrene, not specified as recurrent; K42.9 Umbilical hernia without obstruction or gangrene; M25.551 Pain in right hip; M54.50 Low back pain, unspecified; R31.9 Hematuria, unspecified; F17.200 Nicotine dependence, unspecified, uncomplicated; Z82.49 Family history of ischemic heart disease and other diseases of the circulatory system; R10.9 Unspecified abdominal pain
CPT/HCPCS: 80053; 80307; 80323; 81003; 83036; 85025

== ENCOUNTER 2022-05-13 10:27 | Outpatient (REF) | payer OTHER, SELFPAY ==
--- NOTE | ~2022-05-13 | XR_ITS ---
EXAMINATION: XR HIP, RIGHT CLINICAL INFORMATION: Urinary incontinence COMPARISON: None available. TECHNIQUE: No FINDINGS: Right hip: No acute fracture or dislocation. Joint space is maintained. Pelvis: Left hip joint space is maintained without fracture or dislocation. SI joints are intact. Intact symphysis pubis. No acute pelvic fractures seen. Small phleboliths in the pelvis. No suspicious soft tissue calcification. XR/XR hip RT w PEL1V IMPRESSION: No evidence of acute osseous abnormality.
--- NOTE | ~2022-05-13 | XR_ITS ---
EXAMINATION: XR LUMBOSACRAL SPINE CLINICAL INFORMATION: Urinary incontinence COMPARISON: None available. TECHNIQUE: Three views of the lumbosacral spine. FINDINGS: Vertebral alignment is normal. No evidence of acute vertebral fracture or compression deformity. Disc spaces are relatively maintained. There is endplate spurring at multiple levels in the visualized spine. Facet degeneration in the lower lumbar spine. SI joints are intact. No abnormal soft tissue calcification.. XR/XR lumbar spine 2-3V IMPRESSION: Mild lumbar spondylosis.
== END 2022-05-13 10:28 | disposition home or self-care (01) ==
LOC: HO.US 10:27
PROVIDERS: PCP Internal Medicine; Visit Provider Internal Medicine
DX: R32 Unspecified urinary incontinence (principal); M47.816 Spondylosis without myelopathy or radiculopathy, lumbar region
CPT/HCPCS: 72100; 73502

== ENCOUNTER 2022-05-20 15:53 | Outpatient (REF) | payer OTHER, SELFPAY ==
--- NOTE | ~2022-05-20 | US_ITS ---
EXAMINATION: US RETROPERITONEAL COMPLETE (RENAL) CLINICAL INFORMATION: Unspecified urinary incontinence. COMPARISON: CT abdomen and pelvis without contrast 04/04/2022. TECHNIQUE: Real-time imaging of the kidneys and bladder. FINDINGS: RIGHT KIDNEY: 12.1 x 7.7 x 5.7 cm (SAG x AP x TRV). The kidney is normal in size, contour, and echogenicity. Renal cortical thickness is normal. No calculi or focal parenchymal lesions. No hydronephrosis. Mild pelvic fullness. LEFT KIDNEY: 12.1 x 7.1 x 6.4 cm (SAG x AP x TRV). The kidney is normal in size, contour, and echogenicity. Renal cortical thickness is normal. No renal calculi. Mild hydroureteronephrosis. There is a 1.6 cm simple cyst in the lateral lower pole for which no imaging follow-up is recommended. BLADDER: Indeterminate layering echogenic debris. Bilateral ureteral jets are demonstrated. Prevoid bladder volume is 627 mL. Postvoid bladder volume is 78.4 mL. The prostate volume is 17.6 mL. US/US retroperitoneal comp IMPRESSION: 1. Mild left-sided hydroureteronephrosis of uncertain etiology. If an obstructive uropathy is clinically suspected, recommend correlation with CT abdomen/pelvis. 2. Nonspecific layering echogenic debris in the urinary bladder. Correlate with urinalysis for the presence of cystitis. 3. Increased post void bladder volume, nonspecific could be associated with patient's apprehension to urinate, outlet obstruction or less likely neurogenic disorder.
== END 2022-05-20 15:54 | disposition home or self-care (01) ==
LOC: HO.US 15:53
PROVIDERS: PCP Internal Medicine; Visit Provider Internal Medicine
DX: R32 Unspecified urinary incontinence (principal); R35.1 Nocturia
CPT/HCPCS: 76770

== ENCOUNTER 2022-05-20 16:23 | Outpatient (REF) | payer OTHER, SELFPAY ==
[2022-05-20 17:14] LABS: Urine Cytology See Pathology rpt
== END 2022-05-20 16:24 | disposition home or self-care (01) ==
LOC: HO.LNP 16:23
PROVIDERS: Visit Provider Nurse Practitioner Family
DX: R31.9 Hematuria, unspecified (principal)
CPT/HCPCS: 88112

== ENCOUNTER → 2022-06-22 08:22 | Outpatient (BNVA) | payer OTHER, SELFPAY | PROVIDERS: PCP Internal Medicine; Referring Provider Internal Medicine; Visit Provider Surgery | DX: Z13.89 Encounter for screening for other disorder (principal) ==

== ENCOUNTER 2022-06-30 08:55 | Outpatient (REF) | payer OTHER, SELFPAY ==
[2022-06-30 10:27] LABS: Amphetamine Screen Urine Not Detected (Not Detect); Barbiturates, Urine Not Detected (Not Detect); Benzodiazepines Screen Urine Not Detected (Not Detect); Cannabinoid Screen Urine POSITIVE (Not Detect); Cocaine Screen Urine Not Detected (Not Detect); Fentanyl, urine Not Detected (Not Detect); Opiate Screen Urine Not Detected (Not Detect); Phencyclidine Screen Urine Not Detected (Not Detect)
[2022-07-10 22:03] LABS: Cotinine, U 1167 ng/mL; Nicotine, U 2055 ng/mL
== END 2022-06-30 08:56 | disposition home or self-care (01) ==
LOC: HO.LAB 08:55
PROVIDERS: Nurse Practitioner Family; PCP Internal Medicine; Visit Provider Surgery
DX: Z12.5 Encounter for screening for malignant neoplasm of prostate (principal); R32 Unspecified urinary incontinence; K40.90 Unilateral inguinal hernia, without obstruction or gangrene, not specified as recurrent; K42.9 Umbilical hernia without obstruction or gangrene; R10.9 Unspecified abdominal pain; R35.1 Nocturia; Z72.0 Tobacco use
CPT/HCPCS: 36415; 51798; 80307; 80323; 84153

== ENCOUNTER → 2022-07-06 08:30 | Outpatient (BNVA) | payer OTHER, SELFPAY | PROVIDERS: PCP Internal Medicine; Visit Provider Surgery ==

== ENCOUNTER → 2022-07-27 08:35 | Outpatient (BNVA) | payer OTHER, SELFPAY | PROVIDERS: PCP Internal Medicine; Referring Provider Internal Medicine; Visit Provider Surgery ==

== ENCOUNTER 2022-08-06 09:18 | Outpatient (REF) | payer OTHER, SELFPAY ==
[2022-08-12 17:29] LABS: Cotinine, U 7 ng/mL; Nicotine, U <2 ng/mL
== END 2022-08-06 09:19 | disposition home or self-care (01) ==
LOC: HO.LAB 09:18
PROVIDERS: PCP Internal Medicine; Visit Provider Surgery
DX: K40.90 Unilateral inguinal hernia, without obstruction or gangrene, not specified as recurrent (principal); R10.31 Right lower quadrant pain; Z72.0 Tobacco use; F19.11 Other psychoactive substance abuse, in remission; M54.10 Radiculopathy, site unspecified; Z79.899 Other long term (current) drug therapy
CPT/HCPCS: 80323

== ENCOUNTER → 2022-08-16 09:51 | Outpatient (BNVA) | payer OTHER, SELFPAY | PROVIDERS: PCP Internal Medicine; Visit Provider Surgery | DX: R10.31 Right lower quadrant pain (principal); Z72.0 Tobacco use; K40.90 Unilateral inguinal hernia, without obstruction or gangrene, not specified as recurrent ==

== ENCOUNTER 2022-09-02 05:59 | Day surgery (SDC) | payer OTHER, SELFPAY ==
[2022-08-30 13:52] VITALS: BMI 28.8
--- NOTE | 2022-09-01 13:25 | MHC.SHP ---
Pre-Procedural Eval Section A Date of Service: 09/01/22 The patient is an INPATIENT: No The History & Physical has been completed within 30 days and I have reviewed it.: Yes Section B Chief Complaint: Unilateral inguinal hernia, without obstruction or Allergies: Allergies Allergy/AdvReac Type Severity Reaction Status Date / Time No Known Allergies Allergy Verified 08/16/22 09:58 Plan I have reviewed the history and physical and performed a pertinent physical examination on my patient. No changes have occurred unless specified. Time Spent With Patient Time: Total time managing care of this patient today ____ minutes.
[2022-09-02] MEDS: Lactated Ringers 1,000 ML 100 ML IVCONT (06:32)
[2022-09-02 06:39] VITALS: BP 168/92; PULSE 77; RESP 18; TEMP 36.9; O2SAT 96
--- NOTE | 2022-09-02 07:16 | HO.ANESPROP2 ---
HPI - Anesthesia Eval Consult details Narrative: [facility] Active Problems Active Problems: All Active Problems (Updated 08/16/22 @ 09:57 by Keith Grove MD) Marijuana abuse, continuous (Acute) Colon cancer screening (Acute) Right groin pain (Acute) Impaired glucose tolerance (Acute) Hydronephrosis (Acute) Nocturia (Acute) Urinary incontinence (Acute) Flank pain (Acute) Diverticular disease (Acute) Tobacco abuse (Acute) Umbilical hernia (Acute) Right inguinal hernia (Acute) Right hip pain (Acute) Hematuria (Acute) Right low back pain (Acute) Family history of early CAD (Acute) LV dysfunction (Acute) Past Medical History Medical History Diverticulitis Smoking Family History Family History Mother Vaginal cancer Father Heart attack, Onset Age: 22 Family history of problems with anesthesia: No Surgical History Surgical History No pertinent past surgical history History of Problems with Anesthesia: No Social History Social History Housing: Apartment Alcohol intake: current Alcohol intake frequency: holidays/special occasions only Patient Tobacco Use Status: Former Tobacco user Tobacco use type: Cigarette Cigarettes Per Day: 8 e-Cigarette/Vaping Use: Never Used Second Hand Smoke Exposure: Yes Substance Use Frequency: Occasionally Are you DNR?: No Advance Directives: No Advance Directives Information Provided: Yes Nutrition Risks: No Nutritional Risk service: No Current occupational status: employed Current occupation: make plastic bottles Cognitive needs: No Hearing needs: No Vision needs: Yes Meds Allergies Allergy/AdvReac Type Severity Reaction Status Date / Time No Known Allergies Allergy Verified 08/16/22 09:58 Active Medications: Current Medications Albuterol Sulfate (Albuterol Sulfate (0.083%) 2.5 Mg/3 Ml Vial.Neb) 2.5 mg INHALE ONCE PRN PRN Reason: Shortness of Breath/Wheezing Lactated Ringer's (Lr) 1,000 mls @ 100 mls/hr IVCONT .Q10H SINDHU Last Admin: 09/02/22 06:32 Dose: 100 mls/hr Exam Exam Date and Time: September 02, 2022 0716 Height,Weight and Vital Signs: Height 6 ft 1 in Weight 98.883 kg Last Vital Signs Temp 98.5 F 09/02/22 06:39 Pulse 77 09/02/22 06:39 Resp 18 09/02/22 06:39 BP 168/92 H 09/02/22 06:39 Pulse Ox 96 09/02/22 06:39 O2 Del Method Room Air 09/02/22 06:39 Airway Mallampati Class: II TM Dist: >3cm Neck ROM: Limited Heart: rrr Lungs: cta Assessment and Plan Assessment Anesthesia Assessment: Anesthesia Plan Discussed Final Anesthetic Review Family History of Problems with Anesthesia: No History of Problems with Anesthesia: No NPO: Yes ASA Class: III Final Preanesthetic Review: No Changes in Pt Med Stat, Meds/Allgs Chart Reviewed, Consent Obtained/Reviewed and Anes Risks/Benef Reviewed Patient Risk: Intermediate Procedure Risk: Intermediate Anesthetic Plan Anesthetic Plan: GA and Agree w/ Assess. and Plan Disposition: Standard PACU
--- NOTE | 2022-09-02 07:24 | P.OP_ITS ---
Operative Note Operative Note Date of Service: 09/02/22 Narrative: Preop diagnosis: [Reducible right inguinal hernia] Postop diagnosis: [Reducible direct inguinal hernia] Procedure: [Laparoscopic repair with 4 x 6 in ProGrip mesh] Surgeon: Keith Grove MD Assist: [none] Anesthesia: [GET; local: Ropivicaine 0.5%: Lidocaine, 1% with epi in 50/50 mix, 20cc total used] Estimated blood loss: [3cc] Specimen: [none] Intraoperative findings: [Direct right inguinal hernia, viable properitoneal fat] Indications: [The patient is a 51-year-old gentleman who presented to the emergency department with right flank pain and hematuria following binge drinking. In his workup, no hematuria etiology was determined, but an incidental right inguinal hernia was noted. The patient had ongoing flank and lower extremity pain not related to the hernia. The patient then started to described local inguinal complaints and felt that hernia repair would benefit him. Nicotine cessation was mandated since this was not an emergent case and the patient quit using nicotine. We discussed the pros and cons of open versus laparoscopic repair with mesh and he wanted to proceed with a laparoscopic hernia repair the inherent risks of bleeding, infection, hernia recurrence, ongoing flank pain, hematuria and other low right lower extremity complaints since they were not related to the hernia, risk of mesh complications that could require an operation or chronic pain management was also discussed. The option of continued observation since the hernia spontaneously reduced was encouraged but declined by the patient. Activity restrictions including that the patient can return to work on light duty after 1 week was disclosed in the patient was advised that he is not disabled since he can perform light duty. Patient seemed understand all of his options in these were reviewed with an web applications administrator and the patient's questions seemed to be answered. He wanted to proceed with surgery.] Procedure: [Procedure: The patient was identified in the preoperative holding area by myself and the operative site marked by me confirming a right inguinal hernia. The patient voided their bladder union contract representative, received antibiotics per protocol and sequential compression stockings were in place. The operative field hair had been clipped in preop holding. The patient was again identified in the operating suite and placed supine on the table. See anesthesia notes for full details regarding anesthesia care and management. The patient was then widely prepped and draped in the usual manner using chlorhexidine. An appropriate time-out was performed. The patient's abdomen was accessed through a supraumbilical transverse incision using preemptive local. Veress needle was placed without incident, an appropriate drop test performed and used to obtain a pneumoperitoneum of 15 mmHg using carbon dioxide. Opening pressure was 3 mmHg. The abdomen was then accessed with a 5 mm/30 degree laparoscopic for a 5 mm optical trocar without incident. I then inspected for evidence of injury from either the Veress needle or trocar and found none. The patient was positioned in gentle Trendelenburg position and additional 5 mm trocars placed using preemptive local under direct laparoscopic vision in the patient's right and left midclavicular lines. The 5 mm supraumbilical trocar was upsized to a 12. Laparoscopy confirmed direct right inguinal hernia hernia and ipsilateral peritoneal & transversalis fascia incision was made using a grasper and Endo scissors. Hemostasis was obtained with electrocautery. Dissection was then carried medially to Best's ligament. Next, laparoscopic graspers and scissors were used to developed Retzius space, Bogros space and dissection carried laterally taking care to avoid nerve injury. The direct hernia sac was carefully dissected using electrocautery for hemostasis. Once the sac was reduced, dissection avoiding the triangle of pain and triangle of Doom was carried inferiorly and posteriorly to allow placement of a 10 x 15 cm ProGrip mesh. It was tacked using absorbable tacks to Best's ligament. The abdomen was then deflated to 9 mmHg in the field inspected for hemostasis. Local was infiltrated into the operative field and the peritoneal flap closed with absorbable tacks. The abdomen was deflated, the bed return to neutral and trocars removed. The supraumbilical fascia was closed 0 Polysorb suture and skin was closed with 4-0 Monocryl subcuticular sutures. The abdomen was then washed and dried, and Mastisol and Steri-Strips applied followed by Band-Aids. Patient tolerated the procedure well was sent to the recovery area in stable condition. All sponge and instrument counts were correct x2. The patient woke surprisingly violent from anesthesia. Palpation to the right inguinal area confirmed intacted repair.]
[2022-09-02 09:30] VITALS: BP 164/98; PULSE 100; RESP 16; TEMP 36.8; O2SAT 95
[2022-09-02 09:35] VITALS: BP 164/100; PULSE 104; RESP 16; O2SAT 97
[2022-09-02 09:40] VITALS: BP 160/97; PULSE 106; RESP 16; O2SAT 96
[2022-09-02] MEDS: oxyCODONE HCl Immed Release 5 MG TABLET PO (09:44)
[2022-09-02 09:45] VITALS: BP 168/101; PULSE 106; RESP 16; O2SAT 96
[2022-09-02 10:00] VITALS: BP 154/97; PULSE 99; RESP 16; TEMP 36.8; O2SAT 96
== END 2022-09-02 10:15 | disposition home or self-care (01) ==
LOC: HO.SSS 06:00
PROVIDERS: PCP Internal Medicine; Visit Provider Surgery
PROC: (CPT 49650; principal; 2022-09-02 07:30)
DX: K40.90 Unilateral inguinal hernia, without obstruction or gangrene, not specified as recurrent (principal); R73.02 Impaired glucose tolerance (oral); M54.50 Low back pain, unspecified; K57.30 Diverticulosis of large intestine without perforation or abscess without bleeding; I51.9 Heart disease, unspecified; Z82.49 Family history of ischemic heart disease and other diseases of the circulatory system; Z87.19 Personal history of other diseases of the digestive system; Z79.899 Other long term (current) drug therapy; F12.10 Cannabis abuse, uncomplicated; Z87.891 Personal history of nicotine dependence
CPT/HCPCS: 49650; C1781; J0131; J0690; J2250; J2405; J2795; J3010

== ENCOUNTER → 2022-09-02 05:59 | Outpatient (BNV) | payer OTHER, SELFPAY | PROVIDERS: PCP Internal Medicine; Visit Provider Surgery | DX: K40.90 Unilateral inguinal hernia, without obstruction or gangrene, not specified as recurrent (principal) | CPT/HCPCS: 49650 ==

== ENCOUNTER 2022-09-10 08:49 | Outpatient (AMB) | payer OTHER, SELFPAY ==
--- NOTE | 2022-09-10 08:50 | A.OFFVIS_ITS ---
Intake Vital Signs 09/10/22 08:58 Weight 217 lb BP 170/90 H Blood Pressure Location Rt brachial Position Sitting Pulse 71 Intake Visit Reasons: S/P laparoscopic RIH w/mesh Intake Note: This patient presents for a post-op assessment status post laparoscopic right inguinal hernia repair with mesh. Patient denies complaints at this time pertaining to surgery. Waiter/Waitress Second Class Required: No Waiter/Waitress Second Class Name: pt declined interpeter today Parachute Officer: Parachute Officer offered & declined Accompanied by: Self / Same As Patient Allergies No Known Allergies Allergy (Verified 09/10/22 09:15) Medication List - Last Reconciled 09/10/22 by Keith Grove MD meloxicam 15 mg PO DAILY HPI HPI Comments History of Present Illness Details The patient is seen in follow-up from laparoscopic right inguinal herniorrhaphy with ProGrip mesh. He reports no pain and stated that he does not need a work note because he obtained a note from his PCP keeping him out of work until October 02. Explained that from my surgical perspective, he could return to work on light duty on Tuesday, . Patient reports some constipation and noted he was not following the instructions regarding use of docusate. He states he has been eating a lot of bananas and I explained that this is a constipating fruit. The option of milk of magnesia and referring to the docusate instructions was again encouraged. The patient notes continued back and right leg pain but he believes that things are better since surgery [facility] Medical History Diverticulitis Smoking Surgical History (Updated 09/10/22 @ 09:57 by Keith Grove MD) Status post laparoscopic hernia repair (~09/02/22) Family History Mother Vaginal cancer Father Heart attack, Onset Age: 22 Social History Housing: Apartment Alcohol intake: current Alcohol intake frequency: holidays/special occasions only Patient Tobacco Use Status: Former Tobacco user Tobacco use type: Cigarette Cigarettes Per Day: 8 e-Cigarette/Vaping Use: Never Used Second Hand Smoke Exposure: Yes service: No Current occupational status: employed Current occupation: make plastic bottles Cognitive needs: No Hearing needs: No Vision needs: Yes Review of Systems Const All systems reviewed & are unremarkable except as noted in HPI and below Physical Exam Vital Signs: Last Vital Signs Pulse 71 09/10/22 08:58 BP 170/90 H 09/10/22 08:58 On exam, the patient is nontoxic He was examined standing and is incisions are healing well with no evidence of cellulitis On Valsalva, no recurrent inguinal hernia is present Assessment & Plan Assessment & Plan (1) History of hernia repair: Code(s): Z98.890 - Other specified postprocedural states; Z87.19 - Personal history of other diseases of the digestive system (2) Marijuana abuse, continuous: Code(s): F12.10 - Cannabis abuse, uncomplicated (3) Tobacco abuse: Comment: stopped April 2022 but doing cannabis Code(s): Z72.0 - Tobacco use (4) Right hip pain: Code(s): M25.551 - Pain in right hip (5) Flank pain: Code(s): R10.9 - Unspecified abdominal pain Plan Instructions regarding activity reviewed and apparently understood. Patient is free to return to work on light duty 09/13/2022 and would remain on light duty for a month following. After that, he can resume activities without restriction, but the patient declined a work note stating that he obtained 1 from his PCP. Bowel regime instructions were again reviewed with the patient. He declined an automotive parts interpreter and stated that he would continue to consume bananas. Explained that this is constipating and that he really needs to follow the written instructions that were provided at surgery. He said he would review them. The patient will cup rather violently from general anesthesia which the anesthesiologist explained at the time of surgery was due to his heavy marijuana use. The patient is advised to remember this and taper off of his marijuana in the future if additional operations or required to minimize risk of self-injury or injury to the medical team. Patient is discharged from my care and will follow-up p.r.n.. Coding Level of Care Code Global (02022) Diagnoses History of hernia repair Z98.890; Z87.19 Marijuana abuse, continuous F12.10 Tobacco abuse Z72.0 Right hip pain M25.551 Flank pain R10.9
[2022-09-10 08:58] VITALS: BP 170/90; PULSE 71
== END 2022-09-10 09:19 | disposition home or self-care (01) ==
PROVIDERS: PCP Internal Medicine; Visit Provider Surgery
DX: Z98.890 Other specified postprocedural states (principal); Z87.19 Personal history of other diseases of the digestive system; F12.10 Cannabis abuse, uncomplicated; Z72.0 Tobacco use; M25.551 Pain in right hip; R10.9 Unspecified abdominal pain
CPT/HCPCS: 99024

== ENCOUNTER → 2022-09-10 08:49 | Outpatient (BNVA) | payer OTHER, SELFPAY | PROVIDERS: PCP Internal Medicine; Visit Provider Surgery ==

== ENCOUNTER 2022-09-24 09:34 | Outpatient (AMB) | payer OTHER, SELFPAY ==
[2022-09-24 09:38] VITALS: BP 139/106; PULSE 83; BMI 29.1
--- NOTE | 2022-09-24 09:38 | A.OFFVIS_ITS ---
Intake Vital Signs 09/24/22 09:38 Height 6 ft Weight 214 lb 4.629 oz BMI 29.1 BP 139/106 H Blood Pressure Location Lt brachial Position Sitting Pulse 83 Intake Visit Reasons: Colonoscopy Screening Intake Note: Maxi presents in office as a new.patient for a colonoscopy screening. PT CC: pt reports having constipation , 1st colo pt denies any other GI Issues Paper Cone Machine Tender Required: No Accompanied by: Self / Same As Patient Allergies No Known Allergies Allergy (Verified 09/24/22 09:39) HPI Colonoscopy Screening HPI Details 51 year old? male here today for pre colonoscopy screening.? Patient was sent to us by his PCP.? This is his first colonoscopy screening.? Patient denies any gastrointestinal symptoms in the past or at present.? Denies any personal or family history of gastrointestinal disease, colon polyps, or cancer.? Patient woke up rather violent from anesthesia when he had inguinal surgery repair couple weeks ago. Patient is using marijuana daily and was told by anesthesiologist to stop using marijuana before going for any procedure that will require anesthesia.? Negative for history of sleep apnea.? Denies any history of cardiac, renal, pulmonary, or hepatic disease.?? No history of infectious? diseases like hepatitis A, B, C, HIV or tuberculosis.? Patient is not on any anticoagulation therapy. [facility] Medical History Diverticulitis Smoking Surgical History Status post laparoscopic hernia repair (~09/02/22) Family History Mother Vaginal cancer Father Heart attack, Onset Age: 22 Social History Housing: Apartment Alcohol intake: current Alcohol intake frequency: holidays/special occasions only Patient Tobacco Use Status: Former Tobacco user Tobacco use type: Cigarette Cigarettes Per Day: 8 e-Cigarette/Vaping Use: Never Used Second Hand Smoke Exposure: Yes service: No Current occupational status: employed Current occupation: make plastic bottles Cognitive needs: No Hearing needs: No Vision needs: Yes Review of Systems Const Denies weight gain and Denies weight loss ENT Reports no additional complaints, Denies dysphagia and Denies odynophagia Card Reports no additional complaints Resp Reports no additional complaints GI Denies abdominal pain, Denies belching, Denies melena, Denies bloating, Reports constipation, Denies dysphagia, Denies excessive flatus, Denies dyspepsia, Denies heartburn, Denies diarrhea, Denies loose stools, Denies nausea, Denies odynophagia and Denies vomiting Reports no additional complaints Musc Reports no additional complaints Neuro Reports no additional complaints Psych Reports no additional complaints Endo Reports no additional complaints Physical Exam Vital Signs: Last Vital Signs Pulse 83 09/24/22 09:38 BP 139/106 H 09/24/22 09:38 BMI result Body Mass Index 29.1 Const General: healthy appearing, no acute distress and well developed Nutritional Appearance: well nourished Orientation/consciousness: patient oriented x3 HEENT Head: Yes normal to inspection, Yes normocephalic and Yes atraumatic Face and sinus: Yes normal facial exam Mouth: Normal oral and palatal mucosa present Throat: Yes posterior oropharynx normal, Yes tonsils normal and Yes uvula midline Eyes General: appearance normal, both eyes and all related structures Neck Neck: Yes normal visual inspection, Yes full ROM and Yes trachea midline Thyroid: Thyroid normal Resp Effort & Inspection: normal respiratory effort, able to speak in complete sentences, no tracheal deviation and symmetric chest movement Auscultation: clear to auscultation bilaterally Cardio Rate: regular rate Heart sounds: S1 normal heart sound present and S2 normal heart sound present GI Inspection: Yes normal to inspection and No distended Palpation (GI): Soft to palpation, not firm, nontender and No hepatosplenomegaly present Auscultation: normal bowel sounds General: Yes no CVA tenderness Back/Spine/Pelvis Back: no CVA tenderness Skin General skin exam: elasticity normal, turgor normal and dry skin Neuro General: patient oriented x3 Psych Appearance: grossly normal Mental Status: mental status grossly normal Speech and movement: Normal speech and movement present Affect: normal affect Assessment & Plan Assessment & Plan (1) Colon cancer screening: Code(s): Z12.11 - Encounter for screening for malignant neoplasm of colon Plan: Patient denies any GI, cardiac or respiratory symptoms.? However patient does complain of occasional constipation, will send script for MiraLax so he can take it daily. As mentioned above please discuss with patient the importance of stopping marijuana before going for the procedure due to anesthesia.? Denies any history of sleep apnea.? No history infectious diseases in the past or present.? Not on any anticoagulation therapy.? No family or personal history of colon cancer or polyps.? Patient denies melena, hematochezia, unintentional weight loss or ribbon like stools.? Discussed at length the pre-procedure,? prep, diet & medications as well as what to expect prior, during and after the procedure.?? Stressed the importance of good bowel prep. ?Recommended the use of Vaseline or Calmoseptine OTC & baby wipes with bowel movements to promote comfort.? ?Patient verbalizes understanding and agrees to plan of care.? He was given the opportunity to ask questions and all questions answered.? We will see him after the procedure.? Medications: New bisacodyl (Dulcolax (bisacodyl)) take 2 tabs at noon the day before your colonoscopy 10 mg (2 x 5 mg) PO ONCE 1 day 2 tabs 0RF Z12.11 - Encounter for screening for malignant neoplasm of colon polyethylene glycol 3350 (Miralax) As directed by gastroenterology department at [facility] 238 gr ams PO ONCE 238 grams 0RF Z12.11 - Encounter for screening for malignant neoplasm of colon polyethylene glycol 3350 (Miralax) 17 grams PO DAILY 510 grams 2RF Coding Level of Care Code New Pt Level 3 (70023) Diagnoses Colon cancer screening Z12.11 Time Spent (min) 40 Comment 30 minutes spent with patient and additional 10 minutes spent reviewing his records
== END 2022-09-24 10:17 | disposition home or self-care (01) ==
PROVIDERS: PCP Internal Medicine; Visit Provider Nurse Practitioner Family
DX: Z01.818 Encounter for other preprocedural examination (principal); Z12.11 Encounter for screening for malignant neoplasm of colon
CPT/HCPCS: S0285

== ENCOUNTER → 2022-09-24 09:34 | Outpatient (BNVA) | payer OTHER, SELFPAY | PROVIDERS: PCP Internal Medicine; Visit Provider Nurse Practitioner Family ==

== ENCOUNTER 2022-11-16 11:13 | Outpatient (AMB) | payer OTHER, SELFPAY ==
[2022-11-16 11:36] VITALS: BP 138/78; PULSE 80; O2SAT 98
--- NOTE | 2022-11-16 11:36 | A.OFFPC_ITS ---
Vital Signs 11/16/22 11:36 Height 6 ft Weight 221 lb BMI 30.0 BP 138/78 Blood Pressure Location Lt brachial Position Sitting Pulse 80 Pulse Source Pulse Oximeter Pulse Oximetry (%) 98 Oxygen Delivery Method Room Air Intake Visit Reasons: pe Allergies No Known Allergies Allergy (Verified 11/16/22 11:36) Medication List - Last Reconciled 11/16/22 by Floyd Raiens MD bisacodyl (Dulcolax (bisacodyl)) 10 mg (2 x 5 mg) PO ONCE 1 day meloxicam 15 mg PO DAILY polyethylene glycol 3350 (Miralax) 238 grams PO ONCE Tobacco use date assessed: 04/27/22 Dental Screening Dental Screen Date: 11/16/22 Did you have a dental visit in the last 12 months?: Yes Did you have a dental problem in the last 6 months where you did not have access to dental care?: No Was dental information given to patient?: Patient has dentist HPI pe HPI Details 52-year-old obese male smoker with a his tory of umbilical, inguinal hernia impaired glucose tolerance coming in for for physical exam. Last seen in June 2022. Patient has met with gastroenterology and colonoscopies pending. Patient did see the surgeon also and had laparoscopic right inguinal herniorrhaphy with mesh 09/02/2022. getting a lot of heartburn. patient has work up at work [facility] Medical History Diverticulitis Smoking Surgical History Status post laparoscopic hernia repair (~09/02/22) Family History (Updated 11/16/22 @ 11:58 by Floyd Raines MD) Mother Vaginal cancer Father Heart attack, Onset Age: 22 Maternal Grandmother Vaginal cancer Social History (Updated 11/16/22 @ 11:59 by Floyd Raines MD) Housing: Apartment Alcohol intake: current Alcohol intake frequency: holidays/special occasions only Patient Tobacco Use Status: Former Tobacco user Tobacco use type: Cigarette Cigarettes Per Day: 8 e-Cigarette/Vaping Use: Never Used Second Hand Smoke Exposure: Yes service: No Current occupational status: employed Current occupation: make plastic bottles Cognitive needs: No Hearing needs: No Vision needs: Yes Questionnaire PHQ-9 Over the last 2 weeks, how often have you been bothered by any of the following problems? 1. Little interest or pleasure in doing things: not at all 2. Feeling down, depressed, or hopeless: not at all 3. Trouble falling or staying asleep, or sleeping too much: not at all 4. Feeling tired or having little energy: not at all 5. Poor appetite or overeating: not at all 6. Feeling bad about yourself - or that you are a failure or have let yourself or your family down: not at all 7. Trouble concentrating on things, such as reading the newspaper or watching television: not at all 8. Moving or speaking so slowly that other people could have noticed. Or the opposite - being so fidgety or restless that you have been moving around a lot more than usual: not at all 9. Thoughts that you would be better off or of hurting yourself in some way: not at all Total score: 0 Depression Screening Interpretation: Negative Source: Developed by Drs. Harvinder Bowden, Shari Ruiz, Erickson Rueda and colleagues, with an educational jaky from [employer]. Thrive Questionnaire Date Thrive assessed: 04/27/22 AUDIT C Alcohol Use Questionnaire (AUDIT-C) 1. How often do you have a drink containing alcohol?: 2-4 times a month 2. How many drinks containing alcohol do you have on a typical day when you are drinking?: 5 or 6 3. How often do you have six or more drinks on one occasion?: Less than monthly Total Score: 5 Score Reviewed/Action Taken: Yes BLAISE-7 AMB Questionnaire BLAISE-7 Date BLAISE - 7 assessed: 04/27/22 Source: Developed by Drs. Harvinder Bowden, Shari Ruiz, Erickson Rueda and colleagues, with an educational jaky from [employer]. Review of Systems Const Denies poor appetite and Denies weakness Eyes Denies no additional complaints ENT Reports Normal hearing present, Denies dizziness, Denies nasal congestion, Shahram es tinnitus and Denies sore throat Card Denies chest pain, Denies syncope, Denies rapid heart rate and Denies dyspnea Resp Denies cough and Denies dyspnea GI Denies change in stool character, Reports constipation, Denies diarrhea, Denies nausea and Denies vomiting Denies dysuria and Denies urinary frequency Neuro Reports Normal hearing present, Denies confusion, Denies dizziness, Denies syncope and Denies weakness Psych Denies confusion Physical exam (Primary Care) Vital Signs: Last Vital Signs Pulse 80 11/16/22 11:36 BP 138/78 11/16/22 11:36 Pulse Ox 98 11/16/22 11:36 Oxygen Delivery Method Room Air 11/16/22 11:36 BMI result Body Mass Index 30.0 Tobacco/Smoking Status: Tobacco use Status Tobacco use date assessed 04/27/22 11/16/22 11:40 Patient Tobacco Use Status Former Tobacco user 11/16/22 11:40 Tobacco use type Cigarette 11/16/22 11:40 e-Cigarette/Vaping Use Never Used 11/16/22 11:40 PHQ-9: PHQ-9 Score PHQ-9: Total score 0 11/16/22 11:40 Depression Screening Interpretation: Negative Thrive Assessment: Date of Thrive Assessment Date Thrive assessed 04/27/22 11/16/22 11:40 Const Other: R ear impacted cerumen, L TM intact General: No confusion Orientation/consciousness: No confusion HENMT Head: Yes normocephalic Ears: external ears normal Face and sinus: Yes normal facial exam Mouth: moist mucous membranes Throat: Yes tonsils normal Eyes Conjunctivae: conjunctivae normal Pupils: Equal, round and reactive pupils present and Pupil accommodation reflex normal Direct Ophthalmoscopy: normal light reflex Neck Neck: No lymphadenopathy Thyroid: Thyroid normal Chest Chest palpation & inspection: normal inspection of the chest Resp Effort & Inspection: normal respiratory effort and no audible wheezes Auscultation: clear to auscultation bilaterally, no crackles, no wheezes and lung sounds not diminished Cardio Rate: regular rate Rhythm: regular rhythm Peripheral pulses: radial pulses present and dorsalis pedis present GI Palpation (GI): no masses Auscultation: normal bowel sounds and normoactive bowel sounds Rectal Exam - Male: Yes deferred Skin General skin exam: no rashes or lesions noted Rashes: no rashes Neuro General: No confusion Cranial nerves: Yes Equal, round and reactive pupils present and Yes Normal hearing present Cognition (Neuro): normal cognition Gait exam (Neuro): Normal gait present Motor exam (neuro): 5/5 motor strength present throughout Deep tendon reflexes (DTR's): Right brachioradialis reflex intensity grade: 2+, Left brachioradialis reflex intensity grade: 2+, Right patellar reflex intensity grade: 2+ and Left patellar reflex intensity grade: 2+ Extrem General: No edema Office Procedures Cerumen Removal From which ear canal was the cerumen removed: right Removal: irrigation, otoscope w/curette and cerumen loop/spoon Notes: patient tolerated procedure well, no complications and ear canal clear [id number] Irrigation/Lavage Assessment and Plan Assessment & Plan (1) Annual physical exam: Code(s): Z00.00 - Encounter for general adult medical examination without abnormal findings (2) Impaired glucose tolerance: Code(s): R73.02 - Impaired glucose tolerance (oral) Plan: Decrease the amount of carbohydrate intake, pasta, bread, rice and potatoes are all sugar and that is aside from all the sweet stuff, remember that fruits are good but they are Sweet also. (3) History of hernia repair: Comment: Right inguinal hernia repair August 2019 Code(s): Z98.890 - Other specified postprocedural states; Z87.19 - Personal history of other diseases of the digestive system Plan: Right inguinal hernia repaired August 2019 (4) GERD (gastroesophageal reflux disease): Code(s): K21.9 - Gastro-esophageal reflux disease without esophagitis Plan: Avoid the foods that causes that usually spicy foods, tomato products, juices, coffee, soda and foods that your sensitive to. After eating do not lie down, allow 3-4 hours before in lie down. And keep the head of bed above 30 degrees to avoid the acid from going up. (5) Hearing loss, right: Code(s): H91.91 - Unspecified hearing loss, right ear Plan: Impacted cerumen right ear (6) Constipation: Code(s): K59.00 - Constipation, unspecified Plan: Three rules for constipation 1. Diet need to have a high fiber diet less of meat 2. Increase oral fluids 3. Exercise (7) Impacted cerumen of right ear: Code(s): H61.21 - Impacted cerumen, right ear Plan: scoop and irrigation done tympanic membrane intact (8) Multiple pigmented nevi: Code(s): D22.9 - Melanocytic nevi, unspecified Plan: Dermatology referral done Orders: Orders FL upper GI series Today K21.9 - Gastro-esophageal reflux disease without esophagitis, R13.10 - Dysphagia, unspecified Referrals Dermatology Referral D22.9 - Melanocytic nevi, unspecified Coding Level of Care Code Est Pt Prev Care 40-64y(24992) Diagnoses Annual physical exam Z00.00 Impaired glucose tolerance R73.02 History of hernia repair Z98.890; Z87.19 GERD (gastroesophageal reflux disease) K21.9 Hearing loss, right H91.91 Constipation K59.00 Impacted cerumen of right ear H61.21 Multiple pigmented nevi D22.9 CPT Codes Office Procedure - CPT: 96063-Lpm Irrigation/Lavage ([id number]) Additional Codes PHQ-9 - 53339 - PHQ-9 Billing: ([id number])
== END 2022-11-16 13:58 | disposition home or self-care (01) ==
PROVIDERS: Visit Provider Internal Medicine
DX: Z00.00 Encounter for general adult medical examination without abnormal findings (principal); Z98.890 Other specified postprocedural states; Z87.19 Personal history of other diseases of the digestive system; K21.9 Gastro-esophageal reflux disease without esophagitis; H61.21 Impacted cerumen, right ear; H91.91 Unspecified hearing loss, right ear; R73.02 Impaired glucose tolerance (oral); K59.00 Constipation, unspecified; D22.9 Melanocytic nevi, unspecified
CPT/HCPCS: 69210; 99396

== ENCOUNTER 2023-03-09 08:32 | Outpatient (AMB) | payer OTHER, SELFPAY ==
[2023-03-09 08:45] VITALS: BP 136/72; PULSE 85; O2SAT 98; BMI 30.1
--- NOTE | 2023-03-09 08:45 | A.OFFPC_ITS ---
Vital Signs 3 03/09/23 08:45 Height 6 ft Weight 222 lb BMI 30.1 BP 136/72 Blood Pressure Location Lt brachial Position Sitting Pulse 85 Pulse Source Pulse Oximeter Pulse Oximetry (%) 98 Oxygen Delivery Method Room Air Intake Visit Reasons: follow up Allergies No Known Allergies Allergy (Verified 03/09/23 08:45) Tobacco use date assessed: 03/09/23 Dental Screening Dental Screen Date: 03/09/23 Did you have a dental visit in the last 12 months?: Yes Did you have a dental problem in the last 6 months where you did not have access to dental care?: No Was dental information given to patient?: Patient has dentist HPI follow up 2 HPI0 Details 52-year-old obese male with multiple med ical problems impaired glucose tolerance GERD coming in for follow-up. Last seen in October 2022. colon test not done as patient was drinking alcohol. [facility] Medical History (Updated 03/09/23 @ 09:16 by Floyd Raines MD) Hearing loss in right ear GERD (gastroesophageal reflux disease) Smoking Diverticulitis Surgical History (Updated 02/17/23 @ 10:49 by Dimple Orona RN) Status post laparoscopic hernia repair (~09/02/22) Family History (Updated 11/16/22 @ 11:58 by Floyd Raines MD) Mother Vaginal cancer Father Heart attack, Onset Age: 22 Maternal Grandmother Vaginal cancer Social History (Updated 11/16/22 @ 11:59 by Floyd Raines MD) Housing: Apartment Alcohol intake: current Alcohol intake frequency: holidays/special occasions only Patient Tobacco Use Status: Former Tobacco user Tobacco use type: Cigarette Cigarettes Per Day: 8 e-Cigarette/Vaping Use: Never Used Second Hand Smoke Exposure: Yes service: No Current occupational status: employed Current occupation: make plastic bottles Cognitive needs: No Hearing needs: No Vision needs: Yes Questionnaire PHQ-9 Over the last 2 weeks, how often have you been bothered by any of the following problems? 1. Little interest or pleasure in doing things: not at all 2. Feeling down, depressed, or hopeless: not at all 3. Trouble falling or staying asleep, or sleeping too much: not at all 4. Feeling tired or having little energy: not at all 5. Poor appetite or overeating: not at all 6. Feeling bad about yourself - or that you are a failure or have let yourself or your family down: not at all 7. Trouble concentrating on things, such as reading the newspaper or watching television: not at all 8. Moving or speaking so slowly that other people could have noticed. Or the opposite - being so fidgety or restless that you have been moving around a lot more than usual: not at all 9. Thoughts that you would be better off or of hurting yourself in some way: not at all Total score: 0 Depression Screening Interpretation: Negative Depression Screening Done: Yes Source: Developed by Drs. Harvinder Bowden, Shari Ruiz, Erickson Rueda and colleagues, with an educational jaky from [employer]. Thrive Questionnaire Date Thrive assessed: 03/09/23 I am a: Patient What is your living situation today?: I have a steady place to live Within the past 12 months, did the food you bought not last and you didn't have the money to get more?: Never true Within the past 12 months, did you worry whether your food would run out before you got money to buy more?: Never true Do you have trouble paying for medicines?: No Do you have trouble getting transportation to medical appointments?: No Do you have trouble paying your heating and electricity bill?: No Do you have trouble taking care of your child, family member or friend?: No Do you have trouble with day-to-day activities such as bathing, preparing meals, shopping, managing finances, etc.?: No Are you currently unemployed and looking for a job?: No Are you interested in more education?: No AUDIT C Alcohol Use Questionnaire (AUDIT-C) 1. How often do you have a drink containing alcohol?: 2-4 times a month 2. How many drinks containing alcohol do you have on a typical day when you are drinking?: 5 or 6 3. How often do you have six or more drinks on one occasion?: Less than monthly Total Score: 5 Score Reviewed/Action Taken: Yes BLAISE-7 AMB Questionnaire BLAISE-7 Date BLAISE - 7 assessed: 03/09/23 Feeling nervous, anxious, or on edge: 0 = Not at all Not being able to stop or control worryin = Not at all Worrying too much about different things: 0 = Not at all Trouble relaxin = Not at all Being so restless that it is hard to sit still: 0 = Not at all Becoming easily annoyed or irritable: 0 = Not at all Feeling afraid as if something awful might happen: 0 = Not at all Total BLAISE-7 score (0-4 normal; 5-9 mild; 10-14 moderate; 15-21 severe): 0 Source: Developed by Drs. Harvinder Bowden, Shari Ruiz, Erickson Rueda and colleagues, with an educational jaky from [employer]. Physical exam (Primary Care) Vital Signs: Last Vital Signs Pulse 85 03/09/23 08:45 BP 136/72 03/09/23 08:45 Pulse Ox 98 03/09/23 08:45 Oxygen Delivery Method Room Air 03/09/23 08:45 BMI result Body Mass Index 30.1 Tobacco/Smoking Status: Tobacco use Status Tobacco use date assessed 03/09/23 03/09/23 08:49 Patient Tobacco Use Status Former Tobacco user 03/09/23 08:49 Tobacco use type Cigarette 03/09/23 08:49 e-Cigarette/Vaping Use Never Used 03/09/23 08:49 PHQ-9: PHQ-9 Score PHQ-9: Total score 0 03/09/23 08:49 Depression Screening Interpretation: Negative Thrive Assessment: Date of Thrive Assessment Date Thrive assessed 03/09/23 03/09/23 08:49 Const General: alert; No acute distress Eyes Conjunctivae: conjunctivae normal Neck Neck images: 2 1. 1 cm neck mass with lightyellow discoloration question of cystic lesion Resp Auscultation: clear to auscultation bilaterally Cardio Rate: regular rate Rhythm: regular rhythm GI Inspection: Yes normal to inspection Extrem General: Yes normal to inspection and No edema Assessment and Plan Assessment & Plan (1) Impaired glucose tolerance: Code(s): R73.02 - Impaired glucose tolerance (oral) Plan: Decrease the amount of carbohydrate intake, pasta, bread, rice and potatoes are all sugar and that is aside from all the sweet stuff, remember that fruits are good but they are Sweet also. (2) GERD (gastroesophageal reflux disease): Code(s): K21.9 - Gastro-esophageal reflux disease without esophagitis Plan: Avoid the foods that causes that usually spicy foods, tomato products, juices, coffee, soda and foods that your sensitive to. After eating do not lie down, allow 3-4 hours before in lie down. And keep the head of bed above 30 degrees to avoid the acid from going up. (3) Hypercholesterolemia: Code(s): E78.00 - Pure hypercholesterolemia, unspecified Plan: Avoid fried foods, chicken skin, eggs, butter margarine, pastries and meat. Be it pork or beef they have a lot of cholesterol LDL goal of less than 130 and triglyceride of less than 150 thank (4) Epidermal cyst of neck: Code(s): L72.0 - Epidermal cyst Plan: Surgeon referral Orders: Orders 2 Prostate Specific Antigen Scr Today K21.9 - Gastro-esophageal reflux disease without esophagitis Referrals 2 General Surgery Referral L72.0 - Epidermal cyst Coding Level of Care Code Est Pt Level 4 (28696) Diagnoses Impaired glucose tolerance R73.02 GERD (gastroesophageal reflux disease) K21.9 Hypercholesterolemia E78.00 Epidermal cyst of neck L72.0 Additional Codes PHQ-9 - 95110 - PHQ-9 Billing: ([id number])
== END 2023-03-09 09:26 | disposition home or self-care (01) ==
PROVIDERS: PCP Internal Medicine; Visit Provider Internal Medicine
DX: R73.02 Impaired glucose tolerance (oral) (principal); K21.9 Gastro-esophageal reflux disease without esophagitis; E78.00 Pure hypercholesterolemia, unspecified; L72.0 Epidermal cyst
CPT/HCPCS: 99214

== ENCOUNTER 2023-03-28 09:23 | Outpatient (AMB) | payer OTHER, SELFPAY ==
--- NOTE | 2023-03-28 09:33 | MHC.OFFVIS ---
Intake Vital Signs 03/28/23 09:34 Height 6 ft Weight 220 lb BMI 29.8 BP 160/91 H Blood Pressure Location Rt brachial Position Sitting Pulse 84 Intake Visit Reasons: EIC/ Rt neck Intake Note: Patient referred by pcp Dr. Raines for epidermal cyst on Rt neck. Present for 4m. Patient c/o: itch. Forensic Social Worker Required: No Accompanied by: Self / Same As Patient Allergies No Known Allergies Allergy (Verified 03/28/23 09:34) Medication List - Last Reconciled 03/28/23 by Galo Yoon MD bisacodyl (Dulcolax (bisacodyl)) 10 mg (2 x 5 mg) PO ONCE 1 day meloxicam 15 mg PO DAILY polyethylene glycol 3350 (Miralax) 238 grams PO ONCE HPI HPI Comments History of Present Illness Details Patient presents with a right mid neck sebaceous cyst which he has had several months time. His increasing in size, becoming more symptomatic. He wishes to have it excised. He has no such lesions elsewhere. Chart was reviewed and patient evaluated [facility] Medical History Hearing loss in right ear GERD (gastroesophageal reflux disease) Smoking Diverticulitis Surgical History Status post laparoscopic hernia repair (~09/02/22) Family History Mother Vaginal cancer Father Heart attack, Onset Age: 22 Maternal Grandmother Vaginal cancer Social History Housing: Apartment Alcohol intake: current Alcohol intake frequency: holidays/special occasions only Patient Tobacco Use Status: Former Tobacco user Tobacco use type: Cigarette Cigarettes Per Day: 8 e-Cigarette/Vaping Use: Never Used Second Hand Smoke Exposure: Yes service: No Current occupational status: employed Current occupation: make plastic bottles Cognitive needs: No Hearing needs: No Vision needs: Yes Physical Exam Vital Signs: Last Vital Signs Pulse 84 03/28/23 09:34 BP 160/91 H 03/28/23 09:34 BMI result Body Mass Index 29.8 HEENT Other: Proximally 3 x 2 cm right mid neck soft tissue subcutaneous mass consistent with a sebaceous cyst. No cervical or periclavicular axillary adenopathy bilaterally demonstrated Office Procedures Excision Details: Risks, benefits, alternatives of excision of right neck sebaceous cyst reviewed the patient and included but not limited to bleeding, infection, recurrence, numbness, pain, scarring and the patient wished to proceed. All questions answered. Consent signed. After appropriate positioning, patient underwent 1% lidocaine and Betadine prep. A transverse by elliptical incision was made around the cyst in question which measured approximately 3 x 2 cm. Specimen sent to pathology. Wound was irrigated, secured hemostasis, and closed using running 3-0 Vicryl suture followed by Steri-Strips and a sterile dressing. Patient tolerated procedure well. [id number] scalp/neck/hands/feet/genitalia 2.1cm-3cm Procedure code (CPT) selection complete Office Meds lidocaine 1 %-epinephrine 1:100,000 injection solution Performing Provider: Galo Yoon MD Performing Location: [facility] General Surgeons Administered by: Galo Yoon MD on 03/28/23 10:08 Dose Route Admin Location Dispensed Lot Number Expiration Date [facility] [employer] Teacher 10 mL Infiltration 10 mL Assessment & Plan Assessment & Plan (1) Epidermal cyst of neck: Code(s): L72.0 - Epidermal cyst Plan: Patient has been given local instructions including shower in 2 days, ice periodically, no strenuous activities, the Steri-Strips intact, and will see me as directed or p.r.n.. Orders: Orders AMB Excision Today L72.0 - Epidermal cyst Coding Level of Care Code New Pt Level 5 (86387) Diagnoses Epidermal cyst of neck L72.0 CPT Codes Scalp/Neck/Hands/Feet/Genetalia - CPT: 98021-Envdfczn scalp/neck/hands/feet/genitalia 2.1cm-3cm ([id number])
[2023-03-28 09:34] VITALS: BP 160/91; PULSE 84; BMI 29.8
== END 2023-03-28 10:04 | disposition home or self-care (01) ==
PROVIDERS: PCP Internal Medicine; Referring Provider Internal Medicine; Visit Provider Surgery
DX: L72.0 Epidermal cyst (principal)
CPT/HCPCS: 11422; 99204

== ENCOUNTER 2023-03-28 09:23 | Outpatient (REF) | payer OTHER, SELFPAY | END 2023-03-28 09:24 | disposition home or self-care (01) | LOC: HO.LNP 09:23 | PROVIDERS: PCP Internal Medicine; Referring Provider Internal Medicine; Visit Provider Surgery | DX: L72.0 Epidermal cyst (principal) | CPT/HCPCS: 88304 ==

== ENCOUNTER 2023-04-04 09:07 | Outpatient (AMB) | payer OTHER, SELFPAY ==
--- NOTE | 2023-04-04 09:10 | MHC.OFFVIS ---
Intake Vital Signs 04/04/23 09:16 Height 6 ft Weight 215 lb BMI 29.2 BP 149/87 H Blood Pressure Location Rt brachial Position Sitting Pulse 80 Intake Visit Reasons: S/p exc EIC/ Rt neck Intake Note: Patient here s/p exc cyst on Rt neck. Reports incision healing well. Patient c/o: irritation with ban-daid. Stopped covering since yesterday to let it air out. Calender Tender Required: No Accompanied by: Self / Same As Patient Allergies No Known Allergies Allergy (Verified 04/04/23 09:16) HPI HPI Comments History of Present Illness Details Patient presents for follow-up. He has no wound issues or complaints. Pathology is benign [facility] Medical History Hearing loss in right ear GERD (gastroesophageal reflux disease) Smoking Diverticulitis Surgical History Status post laparoscopic hernia repair (~09/02/22) Family History Mother Vaginal cancer Father Heart attack, Onset Age: 22 Maternal Grandmother Vaginal cancer Social History Housing: Apartment Alcohol intake: current Alcohol intake frequency: holidays/special occasions only Patient Tobacco Use Status: Former Tobacco user Tobacco use type: Cigarette Cigarettes Per Day: 8 e-Cigarette/Vaping Use: Never Used Second Hand Smoke Exposure: Yes service: No Current occupational status: employed Current occupation: make plastic bottles Cognitive needs: No Hearing needs: No Vision needs: Yes Physical Exam Vital Signs: Last Vital Signs Pulse 80 04/04/23 09:16 BP 149/87 H 04/04/23 09:16 BMI result Body Mass Index 29.2 Neck Other: Wound well healed. Assessment & Plan Assessment & Plan (1) Epidermal cyst of neck: Code(s): L72.0 - Epidermal cyst Plan Patient has been given local wound instructions, and will follow-up p.r.n.. All questions answered Coding Level of Care Code Global (89215) Diagnoses Epidermal cyst of neck L72.0
[2023-04-04 09:16] VITALS: BP 149/87; PULSE 80; BMI 29.2
== END 2023-04-04 09:28 | disposition home or self-care (01) ==
PROVIDERS: PCP Internal Medicine; Visit Provider Surgery
DX: L72.0 Epidermal cyst (principal)
CPT/HCPCS: 99024

== ENCOUNTER → 2023-04-04 09:07 | Outpatient (BNVA) | payer OTHER, SELFPAY | PROVIDERS: PCP Internal Medicine; Visit Provider Surgery ==

== ENCOUNTER 2023-09-07 09:32 | Outpatient (AMB) | payer OTHER, SELFPAY ==
[2023-09-07 09:34] VITALS: BP 122/78; PULSE 101; O2SAT 98; BMI 29.0
--- NOTE | 2023-09-07 09:34 | A.OFFPC_ITS ---
Vital Signs 09/07/23 09:34 09/07/23 09:50 Height 6 ft Weight 214 lb BMI 29.0 BP 122/78 132/80 Blood Pressure Location Lt brachial Lt brachial Position Sitting Sitting Pulse 101 H Pulse Source Pulse Oximeter Pulse Oximetry (%) 98 Oxygen Delivery Method Room Air Intake Visit Reasons: Cholesterol , IGT Allergies No Known Allergies Allergy (Verified 09/07/23 09:35) Tobacco use date assessed: 03/09/23 Dental Screening Dental Screen Date: 09/07/23 Did you have a dental visit in the last 12 months?: No Did you have a dental problem in the last 6 months where you did not have access to dental care?: No Was dental information given to patient?: No HPI Cholesterol , IGT HPI Details 52-year-old overweight male with a histo ry of impaired glucose tolerance GERD hypercholesterolemia last seen in 03/12/2023. Patient had a cyst on the neck and was referred to the surgeon. 3 x 2 cm right mid neck soft tissue consistent with sebaceous cyst excision done in 03/2023 patient's last blood work was done in 2022. Also noted to have ultrasound of the abdomen done showing mild left-sided hydroureteronephrosis question of etiology advised CT. Increase postvoid volume of 78.4. Patient was supposed to follow-up with urology but aware of not doing this. Discussed my concerns with a history of smoking bladder cancer and concern about the problem of hydroureteronephrosis. Otherwise discussed about colon cancer screening. Also complains about hand pain recently patient does work with the hands and having difficulty with closing to a fist specially on the left thumb area. Denies any fall or trauma. Patient did have some blood work in January from work noting an elevated blood sugar as well as cholesterol hence the request for my blood work. Reminded patient I did request for blood work. [facility] Medical History Hearing loss in right ear GERD (gastroesophageal reflux disease) Smoking Diverticulitis Surgical History Status post laparoscopic hernia repair (~09/02/22) Family History Mother Vaginal cancer Father Heart attack, Onset Age: 22 Maternal Grandmother Vaginal cancer Social History Housing: Apartment Alcohol intake: current Alcohol intake frequency: holidays/special occasions only Patient Tobacco Use Status: Former Tobacco user Tobacco use type: Cigarette Cigarettes Per Day: 8 e-Cigarette/Vaping Use: Never Used Second Hand Smoke Exposure: Yes service: No Current occupational status: employed Current occupation: make plastic bottles Cognitive needs: No Hearing needs: No Vision needs: Yes Questionnaire PHQ-9 Over the last 2 weeks, how often have you been bothered by any of the following problems? 1. Little interest or pleasure in doing things: not at all 2. Feeling down, depressed, or hopeless: not at all 3. Trouble falling or staying asleep, or sleeping too much: not at all 4. Feeling tired or having little energy: not at all 5. Poor appetite or overeating: not at all 6. Feeling bad about yourself - or that you are a failure or have let yourself or your family down: not at all 7. Trouble concentrating on things, such as reading the newspaper or watching television: not at all 8. Moving or speaking so slowly that other people could have noticed. Or the opposite - being so fidgety or restless that you have been moving around a lot more than usual: not at all 9. Thoughts that you would be better off or of hurting yourself in some way: not at all Total score: 0 Depression Screening Interpretation: Negative Depression Screening Done: Yes Source: Developed by Drs. Harvinder Bowden, Shari Ruiz, Erickson Rueda and colleagues, with an educational jaky from [employer]. Thrive Questionnaire Date Thrive assessed: 03/09/23 AUDIT C Alcohol Use Questionnaire (AUDIT-C) 1. How often do you have a drink containing alcohol?: 2-4 times a month 2. How many drinks containing alcohol do you have on a typical day when you are drinking?: 5 or 6 3. How often do you have six or more drinks on one occasion?: Less than monthly Total Score: 5 Score Reviewed/Action Taken: Yes BLAISE-7 AMB Questionnaire BLAISE-7 Date BLAISE - 7 assessed: 03/09/23 Source: Developed by Drs. Harvinder Bowden, Erickson Simpsonoenke and colleagues, with an educational jaky from [employer]. Physical exam (Primary Care) Vital Signs: Last Vital Signs Pulse 101 H 09/07/23 09:34 BP 122/78 09/07/23 09:34 Pulse Ox 98 09/07/23 09:34 Oxygen Delivery Method Room Air 09/07/23 09:34 BMI result Body Mass Index 29.0 Tobacco/Smoking Status: Tobacco use Status Tobacco use date assessed 03/09/23 09/07/23 09:38 Patient Tobacco Use Status Former Tobacco user 09/07/23 09:38 Tobacco use type Cigarette 09/07/23 09:38 e-Cigarette/Vaping Use Never Used 09/07/23 09:38 PHQ-9: PHQ-9 Score PHQ-9: Total score 0 09/07/23 09:38 Depression Screening Interpretation: Negative Thrive Assessment: Date of Thrive Assessment Date Thrive assessed 03/09/23 09/07/23 09:38 Const General: alert; No acute distress Eyes Conjunctivae: conjunctivae normal Resp Auscultation: clear to auscultation bilaterally Cardio Rate: regular rate Rhythm: regular rhythm GI Inspection: Yes normal to inspection Extrem General: Yes normal to inspection and No edema Assessment and Plan Assessment & Plan (1) Impaired glucose tolerance: Code(s): R73.02 - Impaired glucose tolerance (oral) Plan: Decrease the amount of carbohydrate intake, pasta, bread, rice and potatoes are all sugar and that is aside from all the sweet stuff, remember that fruits are good but they are Sweet also. (2) Colon cancer screening: Code(s): Z12.11 - Encounter for screening for malignant neoplasm of colon Plan: Patient is reminded about colonoscopy (3) GERD (gastroesophageal reflux disease): Code(s): K21.9 - Gastro-esophageal reflux disease without esophagitis Plan: Avoid the foods that causes that usually spicy foods, tomato products, juices, coffee, soda and foods that your sensitive to. After eating do not lie down, allow 3-4 hours before in lie down. And keep the head of bed above 30 degrees to avoid the acid from going up. (4) Hypercholesterolemia: Code(s): E78.00 - Pure hypercholesterolemia, unspecified Plan: Avoid fried foods, chicken skin, eggs, butter margarine, pastries and meat. Be it pork or beef they have a lot of cholesterol patient is advised to get blood work done (5) Epidermal cyst of neck: Comment: Status post excision March 2023 sebaceous cyst Code(s): L72.0 - Epidermal cyst Plan: Status post excision sebaceous cyst March 2023 (6) Urinary retention: Code(s): R33.9 - Retention of urine, unspecified Plan: Patient had an ultrasound done showing mild hydro ureteral nephrosis with urinary retention.. Discussed with the patient concerns about urinary retention and with a history of smoking concern about risk for bladder cancer. Patient was advised strongly to follow-up with urology (7) Bilateral hand pain: Code(s): M79.641 - Pain in right hand; M79.642 - Pain in left hand Plan: X-ray requested Orders: Orders XR hand LT 2V Today M79.641 - Pain in right hand, M79.642 - Pain in left hand XR hand RT 2V Today M79.641 - Pain in right hand, M79.642 - Pain in left hand Referrals Gastroenterology Referral Z12.11 - Encounter for screening for malignant neoplasm of colon Urology Referral R33.9 - Retention of urine, unspecified Coding Level of Care Code Est Pt Level 4 (40500) Diagnoses Impaired glucose tolerance R73.02 Colon cancer screening Z12.11 GERD (gastroesophageal reflux disease) K21.9 Hypercholesterolemia E78.00 Epidermal cyst of neck L72.0 Urinary retention R33.9 Bilateral hand pain M79.641; M79.642 Additional Codes PHQ-9 - 36642 - PHQ-9 Billing: ([id number])
[2023-09-07 09:50] VITALS: BP 132/80
== END 2023-09-07 12:56 | disposition home or self-care (01) ==
PROVIDERS: PCP Internal Medicine; Visit Provider Internal Medicine
DX: R73.02 Impaired glucose tolerance (oral) (principal); Z12.11 Encounter for screening for malignant neoplasm of colon; K21.9 Gastro-esophageal reflux disease without esophagitis; E78.00 Pure hypercholesterolemia, unspecified; L72.0 Epidermal cyst; R33.9 Retention of urine, unspecified; M79.641 Pain in right hand; M79.642 Pain in left hand
CPT/HCPCS: 99214

== ENCOUNTER 2023-09-07 10:06 | Outpatient (REF) | payer OTHER, SELFPAY ==
[2023-09-07 10:31] LABS: MANUAL DIFF FLAG NO
[2023-09-07 10:56] LABS: Basophils Percent Auto 0.4 % (0-2); Eosinophils Absolute Auto 0.2 X10*3/uL (0.0-0.4); Hematocrit 45.1 % (42.0-52.0); Hemoglobin 15.5 g/dl (14.0-18.0); Imm Gran Pct Auto 1.2 % (0.0-0.4); Lymphocytes Absolute Auto 2.4 X10*3/uL (1.2-4.9); Lymphocytes Percent Auto 29.4 % (20-40); Mean Corpuscular HGB Conc 34.4 g/dl (31.0-36.0); Mean Corpuscular Hemoglobin 30.5 pg (27.0-33.0); Mean Corpuscular Volume 88.8 fL (80.0-98.0); Mean Platelet Volume 10.7 fL (9.4-12.4); Monocytes Absolute Auto 0.7 X10*3/uL (0.1-1.2); Monocytes Percent Auto 8.3 % (2-11); Neutrophils Absolute Auto 4.8 x10*3/uL (2.0-8.3); Neutrophils Percent Auto 58.7 % (45-73); Platelet Count 279 X10*3/uL (160-400); Red Blood Count 5.08 X10*6/uL (4.60-5.80); Red Cell Distribution Width 12.9 % (11.0-16.0); White Blood Count 8.2 X10*3/uL (4.8-10.8)
[2023-09-07 12:02] LABS: Alanine Aminotransferase 31 U/L (0-40); Albumin Level 4.4 g/dL (3.5-5.0); Alkaline Phosphatase 47 U/L (39-117); Anion Gap 11 (12-20); Aspartate Amino Transferase 22 U/L (5-37); Bilirubin Total 0.4 mg/dL (0.0-1.0); Blood Urea Nitrogen 12 mg/dL (9-16); Calcium 9.3 mg/dL (8.4-10.2); Carbon Dioxide 28 mmol/L (22-29); Chloride 107 mmol/L (96-108); Cholesterol 216 mg/dL (<200); Estimated Glomerular Filt Rate > 60; Glucose Random 106 mg/dL (60-115); HDL Cholesterol 36 mg/dL (>40); LDL Cholesterol Calculated 153 mg/dL (<100); Potassium 4.7 mmol/L (3.3-5.1); Sodium 141 mmol/L (135-145); Total Protein 7.1 g/dL (6.5-8.0); Triglycerides 138 mg/dL (<150)
[2023-09-07 12:05] LABS: Free T4 (Free Thyroxine) 0.83 ng/dL (0.71-1.85); Thyroid Stimulating Hormone 0.62 uIU/mL (0.32-4.0)
[2023-09-07 12:25] LABS: Estimated Average Glucose 114 mg/dL; Hemoglobin A1c % 5.6 % (<6.0)
[2023-09-07 13:47] LABS: Folate 10.8 ng/mL (> or = 4.0); Prostate Specific Antigen Scr 0.84 ng/mL (<0.05-4.0); Vitamin B12 743 pg/mL (200-900)
== END 2023-09-07 10:07 | disposition home or self-care (01) ==
LOC: HO.LAB 10:06
PROVIDERS: PCP Internal Medicine; Visit Provider Internal Medicine
DX: R73.02 Impaired glucose tolerance (oral) (principal); E78.00 Pure hypercholesterolemia, unspecified; K21.9 Gastro-esophageal reflux disease without esophagitis; Z12.5 Encounter for screening for malignant neoplasm of prostate
CPT/HCPCS: 36415; 80053; 80061; 82607; 82746; 83036; 84153; 84439; 84443; 85025

== ENCOUNTER 2023-10-20 09:13 | Emergency (ER) | payer OTHER, SELFPAY ==
[2023-10-20 09:44] VITALS: BP 169/104; PULSE 85; RESP 17; TEMP 36.8; O2SAT 98; BMI 29.1
--- NOTE | 2023-10-20 10:25 | ED_ITS ---
HPI - Ear Problem General Chief complaint: Ear Problems Stated complaint: Fluid coming out of L ear Time Seen by Provider: 10/20/23 09:51 Source: patient and old records reviewed Mode of arrival: ambulatory Limitations: no limitations History of Present Illness ED Provider: SOO SCOTT Narrative: 53 yo male with PMH of GERD, HLD, notes he was wearing ear plugs for his job they have switched him to noise blocking headphone as he has had L ear pain and yellow drainage from the L ear and he feels popping at times. He has no severe headache, fevers, difficulty swalling or difficulty walking. He has not had this before. MD Complaint: ear pain and ear discharge Location: left ear Duration: constant Severity: mild Relieving factors: nothing Exacerbating factors: palpation Context: other Discharge from ear: yes - purulent Associated symptoms ear: decreased hearing and external ear tenderness Treatment prior to arrival: none Related Data Previous Rx's ?Medication ?Instructions ?Recorded bisacodyl 5 mg tablet,delayed 10 mg (2 x 5 mg) PO ONCE 1 day #2 09/24/22 release (Dulcolax (bisacodyl)) tabs polyethylene glycol 3350 17 238 g PO ONCE #238 grams 09/24/22 gram/dose oral powder (Miralax) meloxicam 15 mg tablet 15 mg PO DAILY #90 tabs 03/29/23 ofloxacin 0.3 % ear drops 10 drp otic (ears) DAILY 7 days #5 10/20/23 mL Allergies Allergy/AdvReac Type Severity Reaction Status Date / Time No Known Allergies Allergy Verified 10/20/23 09:46 Review of Systems Review of Systems: Constitutional : No Fever, No Chills, No Fatigue ENT/Mouth : No sore throat, No Rhinorrhea, pos ear pain Eyes: No Eye Pain, No Swelling, No Redness Cardiovascular : No Chest Pain, No SOB, No Dyspnea on Exertion Respiratory : No Cough, No Sputum Gastrointestinal : No Nausea, No Vomiting, No Diarrhea, No abdominal Pain Genitourinary : No Dysuria, No Urinary Frequency, No Hematuria, Musculoskeletal : No joint pain, No Myalgias, No Joint Swelling Skin : No Skin Lesions, No rash Neuro : No Weakness, No Numbness, No Dizziness, no Headache All other systems reviewed and are negative PMFSH Past Medical History Attestation statement: The following information was validated with the patient. Source: old records reviewed Medical History Hearing loss in right ear GERD (gastroesophageal reflux disease) Smoking Diverticulitis Surgical History Status post laparoscopic hernia repair (~09/02/22) Family History Family History Mother Vaginal cancer Father Heart attack, Onset Age: 22 Maternal Grandmother Vaginal cancer Social History Social History Housing: Apartment Alcohol intake: current Alcohol intake frequency: holidays/special occasions only Patient Tobacco Use Status: Former Tobacco user Tobacco use type: Cigarette Cigarettes Per Day: 8 e-Cigarette/Vaping Use: Never Used Second Hand Smoke Exposure: Yes Advance Directives: No Advance Directives Information Provided: Yes Do you have a plan to hurt others: No Plan service: No Current occupational status: employed Current occupation: make plastic bottles Cognitive needs: No Hearing needs: No Vision needs: Yes Physical Exam Vital Signs: Vital Signs: Last Vital Signs Temp 98.2 F 10/20/23 09:44 Pulse 85 10/20/23 09:44 Resp 17 10/20/23 09:44 BP 169/104 H 10/20/23 09:44 Pulse Ox 98 10/20/23 09:44 O2 Del Method Room Air 10/20/23 09:44 BMI result Body Mass Index 29.1 Appearance: Alert. Oriented X3. No acute distress. Eyes: Pupils equal, round and reactive to light. ENT: Pharynx normal. L ear canal erythematous with yellow drainage, TM normal no bulging, ext ear normal, no swelling externally. Neck: Normal inspection. Neck supple. CVS: Pulses normal. Respiratory: No respiratory distress. Abdomen: Soft and non-tender. Skin: Skin warm and dry. Normal skin color. Extremities: No lower extremity edema. Neuro: Oriented X 3. No motor deficit. No sensory deficit. Medical Decision Making Medical Decision Making MDM Narrative: 53 yo male with PMH of GERD, HLD here with drainage from L ear not toxic no co ncern for deeper space infection will start on drops and then he is going to use headphone and avoid plugs. Not toxic appearing. TM is normal no perforation Differential Diagnosis Differential Diagnoses: The differential diagnosis associated with the presentation includes external otitis, AOM External Record Review External record reviewed: Outpatient record Prescription Management I considered prescription management with: Antibiotic Discharge Plan Discharge Clinical Impression: Otitis externa Patient Disposition: Home, Self-Care Instructions: Otitis Externa (ED) Additional Instructions: please do not use ear plugs anymore just headphone type noise blockage return for worsening symptoms, fevers, severe headaches, issues walking or any other concerns try to keep water out of the ear for 3 days Prescriptions: New ofloxacin 0.3 % drops 10 drp otic (ears) DAILY 7 Days Qty: 5 0RF No Action meloxicam 15 mg tablet 15 mg PO DAILY Qty: 90 1RF bisacodyl [Dulcolax (bisacodyl)] 5 mg tablet,delayed release (DR/EC) 10 mg PO ONCE 1 Days Qty: 2 0RF Rx Instructions: take 2 tabs at noon the day before your colonoscopy polyethylene glycol 3350 [Miralax] 17 gram/dose powder 238 g PO ONCE Qty: 238 0RF Rx Instructions: As directed by gastroenterology department at [facility] Stand Alone Forms: Work/School Release Print Language: Niuean
[2023-10-20 10:56] VITALS: BP 169/104; PULSE 85; RESP 17; TEMP 36.8; O2SAT 98
== END 2023-10-20 10:56 | disposition home or self-care (01) ==
PROVIDERS: Emergency Provider Emergency Medicine; PCP Internal Medicine
DX: H60.92 Unspecified otitis externa, left ear (principal); H92.02 Otalgia, left ear
CPT/HCPCS: 99283

== ENCOUNTER 2023-11-10 08:45 | Outpatient (AMB) | payer OTHER, SELFPAY ==
--- NOTE | 2023-11-10 09:03 | A.OFFVIS_ITS ---
Intake Visit Reasons: hydroureternephrosis Intake Note: Patient presents today for Hydroureternephrosis Urology Medications: none Blood Thinner: none Institute Scientist Required: No Accompanied by: Self / Same As Patient Allergies No Known Allergies Allergy (Verified 11/10/23 10:03) Medication List - Last Reconciled 11/10/23 by MAXIMINO Garcia No Known Home Meds HPI Comments Details: Maxi Villa is a pleasant 53-year-old male patient of Dr. Raines. He presents to the office today for a follow-up. Of note, patient was last seen over a year ago at which time recommendations were made for nuclear renal scan as previous retroperitoneal ultrasound noted hydronephrosis. In discussion with the patient today he reports not having had imaging done/performed due to his busy work schedule. We discussed at length importance of following up as well as having imaging done for further assessment evaluation. Previous retroperitoneal ultrasound results 05/13 note the right kidney with no calculi, lesions, or hydronephrosis. Left kidney with no calculi or lesions. There is a 1.6 cm simple cyst in the lateral lower pole for which no imaging follow-up is recommended. There is mild hydroureternephrosis. Bilateral ureteral jets are demonstrated. Pre void bladder volume is 627 mL. Postvoid bladder volume is 78 mL. The prostate volume is 17.6 mL. PSAs are as follows: 07/13 0.6, 09/13 0.8. He had previously trialed Flomax for symptoms of urinary urgency, urinary frequency, and nocturia. However with lifestyle modifications of limiting fluids and avoiding bladder triggers/irritants he feels symptoms have improved. He currently denies any bothersome urinary issues or concerns. In office urinalysis results reviewed with the patient today. He denies urinary urgency, urinary frequency, incontinence, nocturia, hematuria, dysuria, foul smelling urine, changes to urinary stream, flank pain, fever, and or chills. He is happy with his current voiding parameters. He otherwise offers no issues or concerns at this time. BUN: 07/11 11, 04/15 11, 05/13 13, 09/13 12 Creatinine: 07/11 0.87, 04/15 0.85, 05/13 0.79, 09/13 0.86 PFS Medical History Hearing loss in right ear GERD (gastroesophageal reflux disease) Smoking Diverticulitis Surgical History Status post laparoscopic hernia repair (~09/02/22) Family History Mother Vaginal cancer Father Heart attack, Onset Age: 22 Maternal Grandmother Vaginal cancer Social History Housing: Apartment Alcohol intake: current Alcohol intake frequency: holidays/special occasions only Patient Tobacco Use Status: Former Tobacco user Tobacco use type: Cigarette Cigarettes Per Day: 8 e-Cigarette/Vaping Use: Never Used Second Hand Smoke Exposure: Yes service: No Current occupational status: employed Current occupation: make plastic bottles Cognitive needs: No Hearing needs: No Vision needs: Yes Review of Systems Const Reports as per HPI Eyes Reports no additional complaints ENT Reports no additional complaints Card Reports no additional complaints Resp Reports no additional complaints GI Reports no additional complaints Reports as per HPI Musc Reports no additional complaints Neuro Reports no additional complaints Psych Reports no additional complaints Endo Reports no additional complaints Dylan/Lymph Reports no additional complaints Aller/Immun Reports no additional complaints Physical Exam Const General: cooperative, healthy appearing, comfortable, no acute distress, well developed, alert and awake Orientation/consciousness: patient oriented x3 Limitations: no limitations HEENT Head: Yes normal to inspection, Yes normocephalic and Yes atraumatic Ears: hearing grossly normal bilaterally Eyes General: appearance normal, both eyes and all related structures Neck Neck: Yes normal visual inspection and Yes trachea midline Chest Chest palpation & inspection: normal inspection of the chest Resp Effort & Inspection: normal respiratory effort and able to speak in complete sentences Cardio Rate: regular rate GI Inspection: Yes normal to inspection Rectal Exam - Male: Yes deferred General: Yes no CVA tenderness Back/Spine/Pelvis Back: no CVA tenderness Skin General skin exam: no rashes or lesions noted Neuro General: patient oriented x3 Extrem General: Yes normal to inspection Psych Appearance: grossly normal and well kempt Mental Status: mental status grossly normal Speech and movement: Normal speech and movement present and Clear speech present Affect: normal affect Attitude: cooperative Thought process: Normal thought process present Thought content: Normal thought content present Insight: Fair insight present (Psych) Judgement: Fair judgement present (Psych) Results AMB Urinalysis, Automated UA Leukoctes 0 Giana/uL Last Edit by Couchbasekassidy Alexandra on 11/10/23 09:11 UA Nitrite Last Edit by Radiospire Networksdebbie on 11/10/23 09:11 UA Urobilinogen 0.2 mg/dL Last Edit by Radi[employer] Networksdebbie on 11/10/23 09:11 UA Protein 0 mg/dL Last Edit by [employer] Networksdebbie on 11/10/23 09:11 UA pH 6.0 Last Edit by Radi[employer] Networksdebbie on 11/10/23 09:11 UA Blood 0 Henry/uL Last Edit by [employer] Networksdebbie on 11/10/23 09:11 UA Specific Wayne 1.015 Last Edit by [employer]debbie on 11/10/23 09:11 UA Ketone Last Edit by [employer]debbie on 11/10/23 09:11 UA Bilirubin 0 mg/dL Last Edit by [employer]debbie on 11/10/23 09:11 UA Glucose 0 mg/dL Last Edit by [employer] Networksdebbie on 11/10/23 09:11 Results Reviewed Results Reviewed: Laboratory Last Values Urine pH (Auto) 6.0 11/10/23 09:10 Specific Wayne (Auto) 1.015 11/10/23 09:10 Urine Protein (Auto) 0 mg/dL 11/10/23 09:10 Glucose (UA)(Auto) 0 mg/dL 11/10/23 09:10 Urine Blood (Auto) 0 Henry/uL 11/10/23 09:10 Urine Bilirubin (Auto) 0 mg/dL 11/10/23 09:10 Urine Urobilinogen (Auto) 0.2 mg/dL 11/10/23 09:10 Leukocyte Esterase (Auto) 0 Giana/uL 11/10/23 09:10 Assessment & Plan Assessment & Plan (1) Hydronephrosis: Code(s): N13.30 - Unspecified hydronephrosis Category: Medical Plan In office urinalysis results reviewed with the patient today; as noted above. Discussed, educated, and stressed the importance of following up and completing further imaging for further assessment evaluation as previously and currently recommending. Will obtain nuclear renal scan for further assessment evaluation. BUN and creatinine ordered Discussed at length potential causes of hydronephrosis. Patient currently denies any bothersome urinary issues or concerns. He reports be happy with current voiding parameters. Follow-up in 1-3 months with labs and imaging; or sooner with any issues, concerns, and or questions. Orders: Orders NM renal flow w pharm int Today N13.30 - Unspecified hydronephrosis AMB Urinalysis Automated Today Z13.9 - Encounter for screening, unspecified Blood Urea Nitrogen Today N13.30 - Unspecified hydronephrosis Creatinine Today N13.30 - Unspecified hydronephrosis Patient Instructions: The patient had an opportunity to ask questions regarding the treatment plan. All questions were answered. Physical exam, labs, and imaging were discussed and reviewed in detail. As well as risks, benefits, and discussion of treatment ramires toribio. No major barriers to understanding were identified. The patient expressed understanding and agreement with the above treatment plan. The patient was made aware they should contact our office by phone for worsening of their current condition, the appearance of new symptoms, or with any questions or concerns. Compliance is encouraged with any medications and follow up testing that is ordered. It is a privilege to be allowed the opportunity to participate in? your urological care.? Again, if you have any questions or concerns If you have any questions or concerns please do not hesitate to contact me. The office is [phone]. This note is constructed using voice recognition software. While every effort has been made to ensure accuracy farmworker dairy errors may have been included. Yours sincerely, MAXIMINO Garcia Coding Level of Care Code Est Pt Level 3 (40910) Diagnoses Hydronephrosis N13.30
== END 2023-11-10 09:20 | disposition home or self-care (01) ==
PROVIDERS: PCP Internal Medicine; Visit Provider Nurse Practitioner Family
DX: N13.30 Unspecified hydronephrosis (principal); Z13.9 Encounter for screening, unspecified
CPT/HCPCS: 99213

== ENCOUNTER → 2023-11-10 08:45 | Outpatient (BNVA) | payer OTHER, SELFPAY | PROVIDERS: PCP Internal Medicine; Visit Provider Nurse Practitioner Family | DX: N13.30 Unspecified hydronephrosis (principal) | CPT/HCPCS: 81003 ==

== ENCOUNTER → 2024-01-10 12:45 | Outpatient (REF) | payer OTHER, SELFPAY ==
[2024-01-10] MEDS: Furosemide 40 MG/4 ML VIAL IVPUSH (15:11)
== END ==
LOC: HO.NUCMED 12:45
PROVIDERS: PCP Internal Medicine; Visit Provider Nurse Practitioner Family
DX: N13.30 Unspecified hydronephrosis (principal)
CPT/HCPCS: 78708; A9539; J1940

== ENCOUNTER 2024-01-17 09:38 | Outpatient (AMB) | payer OTHER, SELFPAY ==
[2024-01-17 09:58] VITALS: BP 124/78; PULSE 80; O2SAT 98; BMI 29.2
--- NOTE | 2024-01-17 09:58 | A.OFFPC_ITS ---
Vital Signs 01/17/24 09:58 Height 6 ft Weight 215 lb BMI 29.2 BP 124/78 Blood Pressure Location Lt brachial Position Sitting Pulse 80 Pulse Source Pulse Oximeter Pulse Oximetry (%) 98 Oxygen Delivery Method Room Air Intake Visit Reasons: 3mth f/u Allergies No Known Allergies Allergy (Verified 01/17/24 09:58) Tobacco use date assessed: 03/09/23 Dental Screening Dental Screen Date: 09/07/23 HPI 3mth f/u HPI Details 53-year-old overweight male with impaire d glucose tolerance GERD hypercholesterolemia urinary retention coming in for follow-up. August last seen patient is reminded about colonoscopy had bilateral hand pain and x-ray requested. Review of the notes patient has seen Urology for hydronephrosis patient was advised a nuclear scan ER visit also in 10/11/2023 for otitis externa and was given ofloxacin. [facility] Medical History Hearing loss in right ear GERD (gastroesophageal reflux disease) Smoking Diverticulitis Surgical History Status post laparoscopic hernia repair (~09/02/22) Family History Mother Vaginal cancer Father Heart attack, Onset Age: 22 Maternal Grandmother Vaginal cancer Social History Housing: Apartment Alcohol intake: current Alcohol intake frequency: holidays/special occasions only Patient Tobacco Use Status: Former Tobacco user Tobacco use type: Cigarette Cigarettes Per Day: 8 e-Cigarette/Vaping Use: Never Used Second Hand Smoke Exposure: Yes service: No Current occupational status: employed Current occupation: make plastic bottles Cognitive needs: No Hearing needs: No Vision needs: Yes Questionnaire PHQ-9 Over the last 2 weeks, how often have you been bothered by any of the following problems? 1. Little interest or pleasure in doing things: not at all 2. Feeling down, depressed, or hopeless: not at all 3. Trouble falling or staying asleep, or sleeping too much: not at all 4. Feeling tired or having little energy: not at all 5. Poor appetite or overeating: not at all 6. Feeling bad about yourself - or that you are a failure or have let yourself or your family down: not at all 7. Trouble concentrating on things, such as reading the newspaper or watching television: not at all 8. Moving or speaking so slowly that other people could have noticed. Or the opposite - being so fidgety or restless that you have been moving around a lot more than usual: not at all 9. Thoughts that you would be better off or of hurting yourself in some way: not at all Total score: 0 Depression Screening Interpretation: Negative Depression Screening Done: Yes Source: Developed by Drs. Harvinder Bowden, Shari Ruiz, Erickson Rueda and colleagues, with an educational jaky from [employer]. Thrive Questionnaire Date Thrive assessed: 03/09/23 AUDIT C Alcohol Use Questionnaire (AUDIT-C) 2. How many drinks containing alcohol do you have on a typical day when you are drinking?: 1 or 2 3. How often do you have six or more drinks on one occasion?: Monthly Total Score: 2 BLAISE-7 AMB Questionnaire BLAISE-7 Date BLAISE - 7 assessed: 03/09/23 Source: Developed by Drs. Harvinder Bowden, Shari Ruiz, Erickson Rueda and colleagues, with an educational jaky from [employer]. Physical exam (Primary Care) Vital Signs: Last Vital Signs Pulse 80 01/17/24 09:58 BP 124/78 01/17/24 09:58 Pulse Ox 98 01/17/24 09:58 Oxygen Delivery Method Room Air 01/17/24 09:58 BMI result Body Mass Index 29.2 Tobacco/Smoking Status: Tobacco use Status Tobacco use date assessed 03/09/23 01/17/24 09:59 Patient Tobacco Use Status Former Tobacco user 01/17/24 09:59 Tobacco use type Cigarette 01/17/24 09:59 e-Cigarette/Vaping Use Never Used 01/17/24 09:59 PHQ-9: PHQ-9 Score PHQ-9: Total score 0 01/17/24 10:24 Depression Screening Interpretation: Negative Thrive Assessment: Date of Thrive Assessment Date Thrive assessed 03/09/23 01/17/24 09:59 Const General: alert; No acute distress Eyes Conjunctivae: conjunctivae normal Resp Auscultation: clear to auscultation bilaterally Cardio Rate: regular rate Rhythm: regular rhythm GI Inspection: Yes normal to inspection Extrem General: Yes normal to inspection and No edema Office Procedures Flu Questionnaire Does the patient have a severe egg allergy?: No Does the patient have severe life threatening allergies?: No Does the patient have a fever or illness today?: No Has the patient ever had Guillain-[place] Syndrome?: No Has the patient ever had any past reaction to a flu shot?: No Immunizations Fluarix Triv [id number] (PF) 45 mcg (15 mcg x 3)/0.5 mL IM syringe Performing Provider: Floyd Raines MD [facility] Administered by: Kamini Damico CMA on 01/17/24 10:23 Dose Route Admin Location Dispensed Lot Number Expiration Date [facility] Distribution District Supervisor 0.5 mL IM Left Deltoid 0.5 mL [id number] 08/20/24 77601-649-38 [employer] VIS Given Date VIS Provided VIS Publication Date 01/17/24 Single Vaccine 20 Eligibility Eligibility Date Funding Source Not [facility] Eligible 01/17/24 Private Coding Level of Care Code Est Pt Level 4 (50089) Diagnoses Bilateral hand pain M79.641; M79.642 Urinary retention R33.9 Hypercholesterolemia E78.00 Gastroesophageal reflux disease without esophagitis K21.9 Esophagitis presence: without esophagitis Impaired glucose tolerance R73.02 Colon cancer screening Z12.11 Assessment & Plan Assessment & Plan (1) Bilateral hand pain: Code(s): M79.641 - Pain in right hand; M79.642 - Pain in left hand Category: Medical Plan: Patient is reminded about the x-ray requested (2) Urinary retention: Code(s): R33.9 - Retention of urine, unspecified Category: Medical Plan: Last year was seeing Urology found to have hydronephrosis and was advised nuclear scan this time (3) Hypercholesterolemia: Code(s): E78.00 - Pure hypercholesterolemia, unspecified Category: Medical Plan: Avoid fried foods, chicken skin, eggs, butter margarine, pastries and meat. Be it pork or beef they have a lot of cholesterol LDL goal of less than 130 and triglyceride of less than 150. (4) GERD (gastroesophageal reflux disease): Code(s): K21.9 - Gastro-esophageal reflux disease without esophagitis Category: Medical Qualifiers: Esophagitis presence: without esophagitis Qualified Code(s): K21.9 - Gastro-esophageal reflux disease without esophagitis Plan: Avoid the foods that causes that usually spicy foods, tomato products, juices, coffee, soda and foods that your sensitive to. After eating do not lie down, allow 3-4 hours before in lie down. And keep the head of bed above 30 degrees to avoid the acid from going up. (5) Impaired glucose tolerance: Code(s): R73.02 - Impaired glucose tolerance (oral) Category: Medical Plan: Decrease the amount of carbohydrate intake, pasta, bread, rice and potatoes are all sugar and that is aside from all the sweet stuff, remember that fruits are good but they are Sweet also. (6) Colon cancer screening: Code(s): Z12.11 - Encounter for screening for malignant neoplasm of colon Category: Medical Plan: Patient is reminded about colonoscopy Orders: Orders Influenza [id number] Immunization Today Z23 - Encounter for immunization
== END 2024-01-17 12:37 | disposition home or self-care (01) ==
PROVIDERS: PCP Internal Medicine; Visit Provider Internal Medicine
DX: M79.641 Pain in right hand (principal); M79.642 Pain in left hand; R33.9 Retention of urine, unspecified; E78.00 Pure hypercholesterolemia, unspecified; K21.9 Gastro-esophageal reflux disease without esophagitis; R73.02 Impaired glucose tolerance (oral); Z12.11 Encounter for screening for malignant neoplasm of colon; Z23 Encounter for immunization

== ENCOUNTER → 2024-01-17 09:38 | Outpatient (BNVA) | payer OTHER, SELFPAY | PROVIDERS: PCP Internal Medicine; Visit Provider Internal Medicine | DX: M79.641 Pain in right hand (principal); M79.642 Pain in left hand; R33.9 Retention of urine, unspecified; E78.00 Pure hypercholesterolemia, unspecified; K21.9 Gastro-esophageal reflux disease without esophagitis; R73.02 Impaired glucose tolerance (oral); Z23 Encounter for immunization | CPT/HCPCS: 90471; 90656; 96127 ==

== ENCOUNTER 2024-03-21 13:15 | Outpatient (AMB) | payer OTHER, SELFPAY ==
--- NOTE | 2024-03-21 13:37 | A.OFFPC_ITS ---
Vital Signs 03/21/24 13:38 Height 6 ft Weight 214 lb BMI 29.0 BP 132/80 Blood Pressure Location Lt brachial Position Sitting Pulse 86 Pulse Source Pulse Oximeter Pulse Oximetry (%) 97 Oxygen Delivery Method Room Air Intake Visit Reasons: follow up Allergies No Known Allergies Allergy (Verified 03/21/24 13:38) Tobacco use date assessed: 03/21/24 Dental Screening Dental Screen Date: 03/21/24 Did you have a dental visit in the last 12 months?: Yes Did you have a dental problem in the last 6 months where you did not have access to dental care?: No Was dental information given to patient?: Patient has dentist HPI follow up HPI Details The patient is a 53-year-old male presenting with metabolic concerns, specifically Type 2 Diabetes Mellitus and Hypercholesterolemia. The patient's fasting blood glucose level was recorded at 126 mg/dL from recent blood work, which suggests controlled diabetes without the need for pharmacological intervention at this time. He avoids consuming simple sugars but consumes high amounts of carbohydrates, which require modification given his condition. The patient also demonstrates elevated cholesterol levels, with a total cholesterol of 228 mg/dL, LDL cholesterol of 140 mg/dL, triglycerides at 324 mg/dL, and an HDL level of 38 mg/dL, which are alarming and indicate poor lipid control. The patient acknowledges a diet high in fried foods, red meats, and other sources of unhealthy fats, which contribute to elevated cholesterol levels. Additionally, laboratory tests detected cotinine, indicative of nicotine presence, although the patient reports current cannabis usage without tobacco; this implies possible exposure to nicotine. Currently, the patient reports no active smoking of cigarette products but a history of tobacco use. [facility] Medical History Hearing loss in right ear GERD (gastroesophageal reflux disease) Smoking Diverticulitis Surgical History Status post laparoscopic hernia repair (~09/02/22) Family History Mother Vaginal cancer Father Heart attack, Onset Age: 22 Maternal Grandmother Vaginal cancer Social History Housing: Apartment Alcohol intake: current Alcohol intake frequency: holidays/special occasions only Patient Tobacco Use Status: Former Tobacco user Tobacco use type: Cigarette Cigarettes Per Day: 8 e-Cigarette/Vaping Use: Never Used Second Hand Smoke Exposure: Yes service: No Current occupational status: employed Current occupation: make plastic bottles Cognitive needs: No Hearing needs: No Vision needs: Yes Questionnaire PHQ-9 Over the last 2 weeks, how often have you been bothered by any of the following problems? 1. Little interest or pleasure in doing things: not at all 2. Feeling down, depressed, or hopeless: not at all 3. Trouble falling or staying asleep, or sleeping too much: not at all 4. Feeling tired or having little energy: not at all 5. Poor appetite or overeating: not at all 6. Feeling bad about yourself - or that you are a failure or have let yourself or your family down: not at all 7. Trouble concentrating on things, such as reading the newspaper or watching television: not at all 8. Moving or speaking so slowly that other people could have noticed. Or the opposite - being so fidgety or restless that you have been moving around a lot more than usual: not at all 9. Thoughts that you would be better off or of hurting yourself in some way: not at all Total score: 0 Depression Screening Interpretation: Negative Depression Screening Done: Yes Source: Developed by Drs. Harvinder Bowden, Shari Ruiz, Erickson Rueda and colleagues, with an educational jaky from [employer]. Thrive Questionnaire Date Thrive assessed: 03/21/24 I am a: Patient What is your living situation today?: I have a steady place to live Within the past 12 months, did the food you bought not last and you didn't have the money to get more?: Never true Within the past 12 months, did you worry whether your food would run out before you got money to buy more?: Never true Do you have trouble paying for medicines?: No Do you have trouble getting transportation to medical appointments?: No Do you have trouble paying your heating and electricity bill?: No Do you have trouble taking care of your child, family member or friend?: No Do you have trouble with day-to-day activities such as bathing, preparing meals, shopping, managing finances, etc.?: No Are you currently unemployed and looking for a job?: No Are you interested in more education?: No Currently or been in a relationship where the following occur: No concerns reported THRIVE Score: 0 AUDIT C Alcohol Use Questionnaire (AUDIT-C) 2. How many drinks containing alcohol do you have on a typical day when you are drinking?: 1 or 2 3. How often do you have six or more drinks on one occasion?: Monthly Total Score: 2 BLAISE-7 AMB Questionnaire BLAISE-7 Date BLAISE - 7 assessed: 03/21/24 Feeling nervous, anxious, or on edge: 0 = Not at all Not being able to stop or control worryin = Not at all Worrying too much about different things: 0 = Not at all Trouble relaxin = Not at all Being so restless that it is hard to sit still: 0 = Not at all Becoming easily annoyed or irritable: 0 = Not at all Feeling afraid as if something awful might happen: 0 = Not at all Total BLAISE-7 score (0-4 normal; 5-9 mild; 10-14 moderate; 15-21 severe): 0 Source: Developed by Drs. Harvinder Bowden, Shari Ruiz, Erickson Rueda and colleagues, with an educational jaky from [employer]. Physical exam (Primary Care) Vital Signs: Last Vital Signs Pulse 86 03/21/24 13:38 BP 132/80 03/21/24 13:38 Pulse Ox 97 03/21/24 13:38 Oxygen Delivery Method Room Air 03/21/24 13:38 BMI result Body Mass Index 29.0 Tobacco/Smoking Status: Tobacco use Status Tobacco use date assessed 03/21/24 03/21/24 13:41 Patient Tobacco Use Status Former Tobacco user 03/21/24 13:41 Tobacco use type Cigarette 03/21/24 13:41 e-Cigarette/Vaping Use Never Used 03/21/24 13:41 PHQ-9: PHQ-9 Score PHQ-9: Total score 0 03/21/24 14:20 Depression Screening Interpretation: Negative Thrive Assessment: Date of Thrive Assessment Date Thrive assessed 03/21/24 03/21/24 13:41 Currently or been in a relationship where the following occur: No concerns reported Const General: alert; No acute distress Eyes Conjunctivae: conjunctivae normal Resp Auscultation: clear to auscultation bilaterally Cardio Rate: regular rate Rhythm: regular rhythm GI Inspection: Yes normal to inspection Extrem General: Yes normal to inspection and No edema Coding Level of Care Code Est Pt Level 4 (42815) Diagnoses Hypercholesterolemia E78.00 Gastroesophageal reflux disease without esophagitis K21.9 Esophagitis presence: without esophagitis Colon cancer screening Z12.11 Impaired glucose tolerance R73.02 Type 2 diabetes mellitus with hyperglycemia Assessment & Plan Assessment & Plan (1) Hypercholesterolemia: Code(s): E78.00 - Pure hypercholesterolemia, unspecified Category: Medical (2) GERD (gastroesophageal reflux disease): Code(s): K21.9 - Gastro-esophageal reflux disease without esophagitis Category: Medical Qualifiers: Esophagitis presence: without esophagitis Qualified Code(s): K21.9 - Gastro-esophageal reflux disease without esophagitis (3) Colon cancer screening: Code(s): Z12.11 - Encounter for screening for malignant neoplasm of colon Category: Medical (4) Impaired glucose tolerance: Code(s): R73.02 - Impaired glucose tolerance (oral) Category: Medical (5) Type 2 diabetes mellitus with hyperglycemia: Code(s): E11.65 - Type 2 diabetes mellitus with hyperglycemia Category: Medical Plan - Advise dietary modifications prioritizing low-carbohydrate and healthy fat intake to manage both diabetes and cholesterol levels. Emphasize the reduction in rice, bread, potatoes, and fried foods. Consideration for plant-based proteins. - Recommend regular physical exercise to improve HDL levels and overall cardiovascular health. - Plan to re-evaluate blood glucose and lipid profiles in three months' time following dietary and lifestyle adjustments. - Encourage cessation of any nicotine products and provide counseling regarding current cannabis use as it may reflect continued nicotine exposure. - Continue regular monitoring of prostate-specific antigen given past urological evaluation, as discussed. - Ensure patient remains vigilant about respiratory protection practices such as mask use during the ongoing flu and COVID-19 season to minimize infection risks. - Encourage continued consultation with a yarn examiner skeins for ongoing dietary guidance and support. Orders: Orders Hemoglobin A1c 3 Months - Type 2 diabetes mellitus with hyperglycemia Complete Blood Count Auto Diff 3 Months - Type 2 diabetes mellitus with hyperglycemia Lipid Panel 3 Months - Type 2 diabetes mellitus with hyperglycemia, E78.00 - Pure hypercholesterolemia, unspecified Comprehensive Met. Panel 3 Months - Type 2 diabetes mellitus with hyperglycemia
[2024-03-21 13:38] VITALS: BP 132/80; PULSE 86; O2SAT 97; BMI 29.0
== END 2024-03-21 15:01 | disposition home or self-care (01) ==
PROVIDERS: PCP Internal Medicine; Visit Provider Internal Medicine
DX: E78.00 Pure hypercholesterolemia, unspecified (principal); K21.9 Gastro-esophageal reflux disease without esophagitis; Z12.11 Encounter for screening for malignant neoplasm of colon; R73.02 Impaired glucose tolerance (oral); E11.65 Type 2 diabetes mellitus with hyperglycemia

== ENCOUNTER 2024-03-27 08:28 | Outpatient (AMB) | payer OTHER, SELFPAY ==
--- NOTE | 2024-03-27 08:39 | A.OFFVIS_ITS ---
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 Raines. He presents to the office today for a follow-up of his hematuria, hydronephrosis, and lower urinary tract symptoms. Recent Lasix renogram results reviewed with the patient today. The relative function of the 2 kidneys based on 2-3 minute image are left 50% and right 50%. Normal perfusion and function with minimal hydronephrosis probably present but there is no outflow obstruction noted bilaterally. In office urinalysis results reviewed with the patient today. He does continue to report episodes of urinary frequency with increase in water intake however feels he is managing this well independently and does not wish to undergo further treatment options at this time. He has previously trialed Flomax however did not find this helpful. He discusses having avoided bladder triggers and irritants and feels symptoms have also improved. PSAs are as follows: 07/13 0.6, 09/13 0.8. He denies urinary urgency, incontinence, hematuria, dysuria, foul smelling urine, changes to urinary stream, flank pain, fever, and or chills. He is happy with his current voiding parameters. He reports nocturia 1 time per night. He denies any other episodes of hematuria. We did discuss workup to include in office cystoscopy however patient declines at this time. He otherwise offers no issues or concerns at this time. Urine Cytology 05/13: Negative for high-grade urothelial carcinoma BUN: 07/11 11, 04/15 11, 05/13 13, 09/13 12, Creatinine: 07/11 0.87, 04/15 0.85, 05/13 0.79, 09/13 0.86 PFSH Medical History Hearing loss in right ear GERD (gastroesophageal reflux disease) Smoking Diverticulitis Surgical History Status post laparoscopic hernia repair (~09/02/22) Family History Mother Vaginal cancer Father Heart attack, Onset Age: 22 Maternal Grandmother Vaginal cancer Social History Housing: Apartment Alcohol intake: current Alcohol intake frequency: holidays/special occasions only Patient Tobacco Use Status: Former Tobacco user Tobacco use type: Cigarette Cigarettes Per Day: 8 e-Cigarette/Vaping Use: Never Used Second Hand Smoke Exposure: Yes service: No Current occupational status: employed Current occupation: make plastic bottles Cognitive needs: No Hearing needs: No Vision needs: Yes Review of Systems Const Reports as per HPI Eyes Reports no additional complaints ENT Reports no additional complaints Card Reports no additional complaints Resp Reports no additional complaints GI Reports no additional complaints Reports as per HPI Musc Reports no additional complaints Neuro Reports no additional complaints Psych Reports no additional complaints Endo Reports no additional complaints Dylan/Lymph Reports no additional complaints Aller/Immun Reports no additional complaints Physical Exam Const General: cooperative, healthy appearing, comfortable, no acute distress, well developed, alert and awake Orientation/consciousness: patient oriented x3 Limitations: no limitations HEENT Head: Yes normal to inspection, Yes normocephalic and Yes atraumatic Ears: hearing grossly normal bilaterally Eyes General: appearance normal, both eyes and all related structures Neck Neck: Yes normal visual inspection and Yes trachea midline Chest Chest palpation & inspection: normal inspection of the chest Resp Effort & Inspection: normal respiratory effort and able to speak in complete sentences Cardio Rate: regular rate GI Inspection: Yes normal to inspection Rectal Exam - Male: Yes deferred General: Yes no CVA tenderness Back/Spine/Pelvis Back: no CVA tenderness Skin General skin exam: no rashes or lesions noted Neuro General: patient oriented x3 Extrem General: Yes normal to inspection Psych Appearance: grossly normal and well kempt Mental Status: mental status grossly normal Speech and movement: Normal speech and movement present and Clear speech present Affect: normal affect Attitude: cooperative Thought process: Normal thought process present Thought content: Normal thought content present Insight: Fair insight present (Psych) Judgement: Fair judgement present (Psych) Results AMB Urinalysis, Automated UA Leukoctes 0 Giana/uL Last Edit by Manuelito Alxeandra on 03/27/24 09:01 UA Nitrite Last Edit by Manuelito Alexandra on 03/27/24 09:01 UA Urobilinogen 0.2 mg/dL Last Edit by Manuelito Alexandra on 03/27/24 09:01 UA Protein 15 mg/dL Last Edit by [employer] Alexandra on 03/27/24 09:01 UA pH 6.0 Last Edit by Manuelito Alexandra on 03/27/24 09:01 UA Blood 0 Henry/uL Last Edit by Manuelito Alexandra on 03/27/24 09:01 UA Specific [place] 1.025 Last Edit by Manuelito Alexandra on 03/27/24 09:01 UA Ketone Last Edit by Manuelito Alexandra on 03/27/24 09:01 UA Bilirubin 0 mg/dL Last Edit by [employer] Alexandra on 03/27/24 09:01 UA Glucose 0 mg/dL Last Edit by Manuelito Alexandra on 03/27/24 09:01 Results Reviewed Results Reviewed: Laboratory Last Values Urine pH (Auto) 6.0 03/27/24 09:00 Specific [place] (Auto) 1.025 03/27/24 09:00 Urine Protein (Auto) 15 mg/dL 03/27/24 09:00 Glucose (UA)(Auto) 0 mg/dL 03/27/24 09:00 Urine Blood (Auto) 0 Henry/uL 03/27/24 09:00 Urine Bilirubin (Auto) 0 mg/dL 03/27/24 09:00 Urine Urobilinogen (Auto) 0.2 mg/dL 03/27/24 09:00 Leukocyte Esterase (Auto) 0 Giana/uL 03/27/24 09:00 Date of Service: 01/10/24 EXAMINATION: RENAL DYNAMIC IMAGING STUDY WITH LASIX CLINICAL INFORMATION: Hydronephrosis, history of kidney stones. FINDINGS: Initial rapid sequence images show prompt and bilaterally symmetrical flow to the kidneys. Subsequent sequential static images obtained up to 30 minutes show good concentration bilaterally. The kidneys appear equal in size. There is evidence of excretory function by 3 minutes postinjection bilaterally. The urinary bladder is visualized by 8 minutes post injection, but most of the bladder is outside the [id number] and only the superior aspect is visualized. At 30 minutes post injection there is good accumulation of activity in the portion of the urinary bladder is visualized and there is mild retention in both renal pelves which appear minimally dilated. Following Lasix administration, there is very prompt washout of the small amount of retained activity in both renal collecting systems. At the end of the study there is no significant activity in either renal collecting system and a full urinary bladder is visualized. The T-1/2 washout times following Lasix administration (measured from the time of peak activity because of the minimal retention at the time of Lasix administration) are: Left 11 minutes and right 14 minutes. The relative function of the two kidneys based on the 2-3 minute images are: Left 50% and right 50%. IMPRESSION: LEFT KIDNEY: Normal perfusion and function. Minimal hydronephrosis is probably present but there is no outflow obstruction. RIGHT KIDNEY: Normal perfusion and function. Minimal hydronephrosis is probably present but there is no outflow obstruction. Assessment & Plan Assessment & Plan (1) Urinary retention: Code(s): R33.9 - Retention of urine, unspecified Category: Medical (2) Nocturia: Code(s): R35.1 - Nocturia Category: Medical (3) Hydronephrosis: Code(s): N13.30 - Unspecified hydronephrosis Category: Medical (4) Hematuria: Code(s): R31.9 - Hematuria, unspecified Category: Medical Plan In office urinalysis results reviewed with the patient today; as noted above. Recent nuclear renal scan results reviewed with the patient today; as noted above. Patient currently denies any bothersome urinary issues or concerns. He reports be happy with current voiding parameters. We discussed importance of avoiding bladder triggers/irritants. We discussed further workup of gross hematuria to include in office cystoscopy; risks and benefits were discussed however patient declines at this time will continue with surveillance monitoring. Follow-up in 6 months with PSA and PVR; or sooner with any issues, concerns, and or questions. Orders: Orders AMB Urinalysis Automated Today Z13.9 - Encounter for screening, unspecified Prostate Specific Antigen 6 Months R33.9 - Retention of urine, unspecified Patient Instructions: The patient had an opportunity to ask questions regarding the treatment plan. All questions were answered. Physical exam, labs, and imaging were discussed and reviewed in detail. As well as risks, benefits, and discussion of treatment choices. No major barriers to understanding were identified. The patient expressed understanding and agreement with the above treatment plan. The patient was made aware they should contact our office by phone for worsening of their current condition, the appearance of new symptoms, or with any question s or concerns. Compliance is encouraged with any medications and follow up testing that is ordered. It is a privilege to be allowed the opportunity to participate in? your urological care.? Again, if you have any questions or concerns If you have any questions or concerns please do not hesitate to contact me. The office is [phone]. This note is constructed using voice recognition software. While every effort has been made to ensure accuracy coating supervisor errors may have been included. Yours sincerely, MAXIMINO Garcia Coding Level of Care Code Est Pt Level 3 (65374) Diagnoses Urinary retention R33.9 Nocturia R35.1 Hydronephrosis N13.30 Hematuria R31.9
== END 2024-03-27 09:18 | disposition home or self-care (01) ==
PROVIDERS: PCP Internal Medicine; Visit Provider Nurse Practitioner Family
DX: R33.9 Retention of urine, unspecified (principal); R35.1 Nocturia; N13.30 Unspecified hydronephrosis; R31.9 Hematuria, unspecified; Z13.9 Encounter for screening, unspecified
CPT/HCPCS: 99213

== ENCOUNTER → 2024-03-27 08:28 | Outpatient (BNVA) | payer OTHER, SELFPAY | PROVIDERS: PCP Internal Medicine; Visit Provider Nurse Practitioner Family | DX: R33.9 Retention of urine, unspecified (principal); R35.1 Nocturia; N13.30 Unspecified hydronephrosis; R31.9 Hematuria, unspecified | CPT/HCPCS: 81003 ==

== ENCOUNTER 2024-11-13 09:03 | Outpatient (REF) | payer OTHER, SELFPAY ==
[2024-11-13 11:36] LABS: Prostate Specific Antigen 0.55 ng/mL (<0.05-4.0)
[2024-11-13 12:12] LABS: Alanine Aminotransferase 66 U/L (0-40); Albumin Level 4.6 g/dL (3.5-5.0); Alkaline Phosphatase 49 U/L (39-117); Anion Gap 10 (12-20); Aspartate Amino Transferase 43 U/L (5-37); Blood Urea Nitrogen 17 mg/dL (9-16); Calcium 9.2 mg/dL (8.4-10.2); Carbon Dioxide 26 mmol/L (22-29); Chloride 110 mmol/L (96-108); Cholesterol 236 mg/dL (<200); Estimated Glomerular Filt Rate > 60; HDL Cholesterol 35 mg/dL (>40); Potassium 4.2 mmol/L (3.3-5.1); Sodium 142 mmol/L (135-145); Total Protein 7.3 g/dL (6.5-8.0); Triglycerides 138 mg/dL (<150)
== END 2024-11-13 09:04 | disposition home or self-care (01) ==
LOC: HO.LAB 09:03
PROVIDERS: Absent Provider Internal Medicine; PCP Internal Medicine; Visit Provider Nurse Practitioner Family
DX: E11.65 Type 2 diabetes mellitus with hyperglycemia (principal); E78.00 Pure hypercholesterolemia, unspecified; R33.9 Retention of urine, unspecified; Z12.5 Encounter for screening for malignant neoplasm of prostate
CPT/HCPCS: 36415; 80053; 80061; 83036; 84153; 85025

== ENCOUNTER 2025-01-28 08:50 | Outpatient (REF) | payer OTHER, SELFPAY ==
[2025-01-28 09:56] LABS: Alanine Aminotransferase 52 U/L (0-40); Albumin Level 4.6 g/dL (3.5-5.0); Alkaline Phosphatase 50 U/L (39-117); Aspartate Amino Transferase 29 U/L (5-37); Total Protein 6.8 g/dL (6.5-8.0)
[2025-01-28 10:17] LABS: HBS Num1 0.00 mIU/mL (0-7.99); HBc Num1 0.04 S/CO (0.00-0.79); HBsAGNum1 0.31 S/CO (0.00-0.99); Hepatitis B Surface Antigen Negative (Negative); ~HepC Num1 0.08 S/CO (0.00-0.79); ~Hepatitis B Surface Antibody NONREACTIVE (Nonreactive); ~Hepatitis C Antibody Nonreactive (Nonreactive)
== END 2025-01-28 08:51 | disposition home or self-care (01) ==
LOC: HO.LAB 08:50
PROVIDERS: PCP Internal Medicine; Visit Provider Internal Medicine
DX: R79.89 Other specified abnormal findings of blood chemistry (principal)
CPT/HCPCS: 36415; 80076; 86704; 86706; 86803; 87340

== ENCOUNTER 2025-02-08 10:49 | Outpatient (REF) | payer OTHER, SELFPAY ==
--- NOTE | ~2025-02-08 | US_ITS ---
CLINICAL HISTORY: R79.89 - Other specified abnormal findings of blood chemistry US abdomen complete Comparison: None provided Findings: The visualized pancreas is normal. The aorta and inferior vena cava are normal caliber. The liver is borderline prominent in size at 17 cm and increased in echotexture. There is no intrahepatic bile duct dilatation. The common duct is 4.0 mm in diameter. The gallbladder is normal. There is no sonographic Aguayo sign. The main portal vein is antegrade. The right kidney is 11.4 cm in length. The left kidney is 12.2 cm in length. Benign 17 mm midpole cyst. The spleen is normal. No ascites. IMPRESSION: Hepatic steatosis and borderline hepatomegaly. No acute process This document has been electronically signed by: Nathen Rico MD on 02/08/2025 12:27:02
--- OUTSIDE RECORDS SUMMARY | 2025-02-08 12:38 | XMS_ITS ---
Author Organization Unknown ENCOUNTERS Encounter Performer Location Date Diagnosis Diagnosis Status Emergency [facility] [address] [place] [address] [id number] SHEILA Pre Admit Generic ED Physician [facility] [address] [place] [address] [id number] Pre Admit Pr[facility] [address] [place] [address] [id number] Pre Admit [facility] [address] [place] [address] [id number] SHEILA Outpatient [address] [address] [id number] SHEILA Emergency [facility] [address] [place] [address] [id number] SHEILA *Note: Encounters from your own facility or health system may be excluded. Allergies, Adverse Reactions, Alerts Allergen Type Severity Identification Date Medications Name Date Quantity Days Supplied [facility] Number
== END 2025-02-08 10:50 | disposition home or self-care (01) ==
LOC: HO.HMGCX 10:49
PROVIDERS: PCP Internal Medicine; Visit Provider Internal Medicine
DX: R79.89 Other specified abnormal findings of blood chemistry (principal)
CPT/HCPCS: 76700

== ENCOUNTER → 2025-02-08 10:56 | Outpatient (BNV) | payer OTHER, SELFPAY | PROVIDERS: PCP Internal Medicine; Visit Provider Radiology Vascular & Interventional Radiology | DX: K76.0 Fatty (change of) liver, not elsewhere classified (principal); R16.0 Hepatomegaly, not elsewhere classified | CPT/HCPCS: 76700 ==